=== PATIENT | male | born 1935 | race Hispanic/Latino ===

== ENCOUNTER 2017-02-11 08:11 | Emergency (ER) | payer MEDICARE ==
[2017-02-11 08:22] VITALS: BMI 25.6
[2017-02-11 08:26] VITALS: TEMP 98.5
[2017-02-11 08:57] LABS: ADD MANUAL DIFF? NO
[2017-02-11 09:03] LABS: BASO # 0.02 K/mm3 (0.0-2.0); BASO % 0.3 % (0.0-3.0); EOS # 0.2 (0.0-0.7); EOS % 2.8 % (1.5-5.0); GRAN % 55.7 % (50.0-68.0); HEMATOCRIT 42.4 % (42.0-52.0); LYMPH # 1.8 (1.2-3.4); LYMPH % 30.8 % (22.0-35.0); MEAN CELL VOLUME 92.6 fL (80.0-105.0); MEAN CORPUSCULAR HEMOGLOBIN 32.1 pg (25.0-35.0); MEAN CORPUSCULAR HGB CONC 34.7 g/dl (31.0-37.0); MEAN PLATELET VOLUME 10.2 fl (7.0-11.0); MONO # 0.6 (0.1-0.6); MONO % 10.4 % (1.0-6.0); PLATELET COUNT 224 10^3/uL (120.0-450.0); RED CELL DISTRIBUTION WIDTH 13.6 % (11.5-14.5); WHITE BLOOD COUNT 5.8 10^3/ul (4.5-11.0)
[2017-02-11 09:10] LABS: INR 1.04 (0.93-1.08); PARTIAL THROMBOPLASTIN TIME 30.9 Seconds (23.7-30.8)
[2017-02-11 09:11] LABS: ALB/GLOB RATIO 1.2 (1.1-1.8); ALKALINE PHOSPHATASE 96 U/L (38-133); ALT/SGPT 39 U/L (7-56); AST/SGOT 23 U/L (15-59); BILIRUBIN,TOTAL 0.4 mg/dL (0.2-1.3); BLOOD UREA NITROGEN 19 mg/dL (7-21); CALCIUM 9.6 mg/dL (8.4-10.5); CARBON DIOXIDE 27 mmol/L (21-33); CHLORIDE 103 mmol/L (95-110); GFR AFRICAN-AMERICAN > 60; GLUCOSE,RANDOM 90 mg/dL (70-110); LIPASE 147 U/L (23-300); SODIUM 140 mmol/L (132-148); TOTAL PROTEIN 7.5 g/dL (5.8-8.3)
--- NOTE | 2017-02-11 09:18 | ED PDOC ---
Arrival/HPI - General Chief Complaint: Male Genitourinary Time Seen by Provider: 02/11/17 08:22 Historian: Patient - History of Present Illness Narrative History of Present Illness (Text): 02/11/17 09:11 A 81 year old male, whose past medical history includes anxiety and neuropathy, presents to the emergency department complaining of urinary retention. Patient notes he has difficulty urinating during the night and reports only some urine last night. Patient reports he has pain from both sides of groin to middle abdomen. Patient denies dysuria or any other complaints at this time. PMD: Dr. Coronado Medications: Detrol and Cardura Symptom Onset: Sudden Symptom Course: Unchanged Activities at Onset: Rest Context: Home Associated Symptoms (Text): abdominal pain Past Medical History - Provider Review Nursing Documentation Reviewed: Yes - Past History Past History: No Previous - Infectious Disease Hx of Infectious Diseases: None - Tetanus Immunization Tetanus Immunization: Unknown - Past Medical History Past Medical History: No Previous - Cardiac Hx Cardiac Disorders: No - Pulmonary Hx Respiratory Disorders: Yes (SMOKED 40 YRS AGO ,NOT A HEAVY SMOKER JUST TIRED IT HE STATED) Hx Bronchitis: Yes - Neurological Hx Neurological Disorder: Yes (NEUROPATHY) - HEENT Hx HEENT Disorder: Yes (using glasses) 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) - Renal Hx Renal Disorder: No - Endocrine/Metabolic Hx Endocrine Disorders: No - Hematological/Oncological Hx Blood Disorders: No - Integumentary Hx Dermatological Disorder: No - Musculoskeletal/Rheumatological Hx 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) Hx Falls: Yes (LAST 12/19/11) - Gastrointestinal Hx Gastrointestinal Disorders: Yes Other/Comment: COLONOSCOPY WITH POLYPS REMOVED - Genitourinary/Gynecological Hx Genitourinary Disorders: No - Psychiatric Hx Psychophysiologic Disorder: Yes Hx Anxiety: Yes Hx Depression: Yes Hx Substance Use: No - Past Surgical History Past Surgical History: No Previous - Anesthesia Hx Anesthesia: Yes Hx Anesthesia Reactions: No Hx Malignant Hyperthermia: No - Suicidal Assessment Feels Threatened In Home Enviroment: No Family/Social History - Physician Review Nursing Documentation Reviewed: Yes Family/Social History: No Known Family HX Smoking Status: Never Smoked Hx Alcohol Use: No Hx Substance Use: No Hx Substance Use Treatment: No Allergies/Home Meds Allergies/Adverse Reactions: Allergies aspirin Allergy (Verified 02/11/17 08:42) NAUSEA codeine Allergy (Verified 02/11/17 08:26) DIZZINESS Penicillins Allergy (Verified 02/11/17 08:26) ANAPHYLAXIS Home Medications: Home Meds Medication Instructions Recorded Confirmed Quetiapine Fumarate [Seroquel] 50 mg PO BID 08/15/14 02/11/17 buPROPion XL [Wellbutrin XL] 300 mg PO QAM 08/15/14 02/11/17 diaZEpam [Valium] 5 mg PO TID 08/15/14 02/11/17 Gabapentin [Neurontin] 300 mg PO TID 08/30/16 02/11/17 Review of Systems - Physician Review All systems were reviewed & negative as marked: Yes - Review of Systems Constitutional: Normal Eyes: Normal ENT: Normal Respiratory: Normal Cardiovascular: Normal Gastrointestinal: Abdominal Pain Genitourinary Male: Urinary Output Changes. absent: Dysuria Musculoskeletal: Normal Skin: Normal Neurological: Normal Endocrine: Normal Hemo/Lymphatic: Normal Psychiatric: Normal Physical Exam Vital Signs Reviewed: Yes Vital Signs Temp Pulse Resp BP Pulse Ox 02/11/17 11:47 62 18 116/66 98 02/11/17 10:14 67 18 110/68 97 02/11/17 08:22 98.5 F 75 20 140/50 L 100 Temperature: Afebrile Blood Pressure: Hypotensive Pulse: Regular Respiratory Rate: Normal Appearance: Positive for: Well-Appearing, Non-Toxic, Comfortable Pain Distress: None Mental Status: Positive for: Alert and Oriented X 3 - Systems Exam Head: Present: Atraumatic, Normocephalic Pupils: Present: PERRL Extroacular Muscles: Present: EOMI Conjunctiva: Present: Normal Mouth: Present: Moist Mucous Membranes Neck: Present: Normal Range of Motion Respiratory/Chest: Present: Clear to Auscultation, Good Air Exchange. No: Respiratory Distress, Accessory Muscle Use Cardiovascular: Present: Regular Rate and Rhythm, Normal S1, S2. No: Murmurs Abdomen: Present: Distention (mild bladder). No: Tenderness Back: Present: Normal Inspection Upper Extremity: Present: Normal Inspection. No: Cyanosis, Edema Lower Extremity: Present: Normal Inspection. No: Edema Neurological: Present: GCS=15, CN II-XII Intact, Speech Normal Skin: Present: Warm, Dry, Normal Color. No: Rashes Psychiatric: Present: Alert, Oriented x 3, Normal Insight, Normal Concentration Medical Decision Making ED Course and Treatment: 02/11/17 09:20 Impression: A 81 year old male with urinary retention. Differential Diagnosis include but are not limited to: urinary retention vs. UTI vs, bladder mass Plan: -- CT abdomen w/wo contrast -- Labs -- Reassess and disposition Prior Visits: Notes and results from previous visits were reviewed. Patient last reported to the emergency department on 11/18/16 for evaluation of intermittent upper left sided chest pain. Patient was admitted to tele/obs. Progress Notes: Medrano inserted by nurse. [address] abdomen Creator : Jonh Flowers MD PROCEDURE: CT Abdomen with and without intravenous contrast IMPRESSION: No evidence of bladder mass or ureteral stone. Kidneys are unremarkable. Patient drained a good amount of urine in the ED. Amount should be documented by RN. Yellow urine. No blood. Abdominal exam improved. No distention. No tenderness. Patient no longer having discomfort or pain. Will place leg bag and keep medrano in place. Will have patient follow up with Dr. Santacruz. He already prescribed patient with Detrol and Cardura for his BPH and urinary symptoms. He will continue to take those. - Lab Interpretations Lab Results: 02/11/17 08:40 02/11/17 08:40 Lab Results 02/11/17 10:00: Urine Color Light yellow, Urine Appearance Clear, Urine pH 7.5, Ur Specific [place] 1.010, Urine Protein Negative, Urine Glucose (UA) Negative, Urine Ketones Negative, Urine Blood Moderate H, Urine Nitrate Negative, Urine Bilirubin Negative, Urine Urobilinogen 0.2, Ur Leukocyte Esterase Negative, Urine RBC 0 - 2, Urine WBC Negative, Ur Epithelial Cells 0 - 2, Urine Bacteria Neg 02/11/17 08:40: Sodium 140, Potassium 4.0, Chloride 103, Carbon Dioxide 27, Anion Gap 14, BUN 19, Creatinine 0.9, Est GFR ( Amer) > 60, Est GFR (Non- Af Amer) > 60, Random Glucose 90, Calcium 9.6, Total Bilirubin 0.4, AST 23, ALT 39, Alkaline Phosphatase 96, Total Protein 7.5, Albumin 4.2, Globulin 3.4, Albumin/Globulin Ratio 1.2, Lipase 147 02/11/17 08:40: PT 11.2, INR 1.04, APTT 30.9 H 02/11/17 08:40: WBC 5.8 D, RBC 4.58, Hgb 14.7, Hct 42.4, MCV 92.6, MCH 32.1, MCHC 34.7, RDW 13.6, Plt Count 224, MPV 10.2, Gran % 55.7, Lymph % (Auto) 30.8, Barron % (Auto) 10.4 H, Eos % (Auto) 2.8, Baso % (Auto) 0.3, Gran # 3.20, Lymph # 1.8, Barron # 0.6, Eos # 0.2, Baso # 0.02 I have reviewed the lab results: Yes - RAD Interpretation Radiology Orders: 02/11/17 08:27 ABDOMEN,PELVIS W/WO CONTRAST [CT] Stat - Medication Orders Current Medication Orders: Discontinued Medications Acetaminophen (Tylenol 325mg Tab) 650 mg PO STAT STA Stop: 02/11/17 08:40 Last Admin: 02/11/17 08:53 Dose: 650 mg Iohexol (Omnipaque 350 100 Ml) Confirm Administered Dose 350 mg .ROUTE .STK-MED ONE Stop: 02/11/17 09:20 Ketorolac Tromethamine (Toradol) 15 mg IVP STAT STA Stop: 02/11/17 08:42 Last Admin: 02/11/17 08:53 Dose: 15 mg - Scribe Statement The provider has reviewed the documentation as recorded by the Usmanibbelkis Pyle All medical record entries made by the Usmanibbelkis were at my direction and personally dictated by me. I have reviewed the chart and agree that the record accurately reflects my personal performance of the history, physical exam, medical decision making, and the department course for this patient. I have also personally directed, reviewed, and agree with the discharge instructions and disposition. Disposition/Present on Arrival - Present on Arrival Any Indicators Present on Arrival: No History of DVT/PE: No History of Uncontrolled Diabetes: No Urinary Catheter: No History of Decub. Ulcer: No History Surgical Site Infection Following: None - Disposition Have Diagnosis and Disposition been Completed?: Yes Diagnosis: Urinary retention Disposition: HOME/ ROUTINE Disposition Time: 12:00 Patient Plan: Discharge Condition: IMPROVED Discharge Instructions (ExitCare): Urinary Retention in Men (ED) Additional Instructions: You, thank you for letting us take care of you today. Your provider was Dr. Decker. You were treated for Urinary Retention. The emergency medical care you received today was directed at your acute symptoms. If you were prescribed any medication, please fill it and take as directed. It may take several days for your symptoms to resolve. Return to the Emergency Department if your symptoms worsen, do not improve, or if you have any other problems. Please contact your doctor or call one of the physicians/clinics you have been referred to that are listed on the Patient Visit Information form that is included in your discharge packet. Bring any paperwork you were given at discharge with you along with any medications you are taking to your follow up visit. Our treatment cannot replace ongoing medical care by a primary care provider (PCP) outside of the emergency department. Keep medrano with leg bag in place until Urology follow up. Continue home medications. Thank you for allowing the [facility] team to be part of your care today. If you had an X-Ray or CT scan: A Radiologist will review the ED reading if any change in treatment is needed we will contact you. If you had a blood, urine, or wound culture: It will take several days for the results, if any change in treatment is needed we will contact you. If you had an STI test: It will take 48 hours for the results. Please call after 1 week if you have not heard back. Referrals: Joce Santacruz MD [Staff Provider] - Follow up with primary Jonh Coronado MD [Primary Care Provider] - Follow up with primary Forms: [employer] (Emirati), WORK NOTE
[2017-02-11] MEDS ORDERED: Iohexol 350 MG/100 ML VIAL ONE (09:19)
--- NOTE | 2017-02-11 10:09 | CT ---
PROCEDURE: CT Abdomen with and without intravenous contrast HISTORY: urinary retention r/o bladder mass r/o kidney ston COMPARISON: None. TECHNIQUE: Axial images of the abdomen from lung bases to iliac crest with and without intravenous contrast enhancement. Coronal and sagittal reformats generated. Oral contrast also administered. Intravenous contrast Dose: 100 cc of Omni 350 Radiation dose: Total exam DLP = 1419 mGy-cm. This CT exam was performed using one or more of the following dose reduction techniques: Automated exposure control, adjustment of the mA and/or kV according to patient size, and/or use of iterative reconstruction technique. FINDINGS: LOWER THORAX: Unremarkable. LIVER: Unremarkable. No gross lesion or ductal dilatation. GALLBLADDER AND BILE DUCTS: Unremarkable. PANCREAS: Unremarkable. No gross lesion or ductal dilatation. SPLEEN: Unremarkable. ADRENALS: Unremarkable. No mass. KIDNEYS AND URETERS: Unremarkable. No hydronephrosis. No solid mass. VASCULATURE: Unremarkable. No aortic aneurysm. BOWEL: Unremarkable. No obstruction. No gross mural thickening. APPENDIX: Normal appendix. PERITONEUM: Unremarkable. No free fluid. No free air. LYMPH NODES: Unremarkable. No enlarged lymph nodes. BLADDER: Charles catheter. No evidence of bladder mass REPRODUCTIVE: The prostate measures 5.4 cm in diameter. A Charlse catheter is in place BONES: No acute fracture. OTHER FINDINGS: None. IMPRESSION: No evidence of bladder mass or ureteral stone. Kidneys are unremarkable.
[2017-02-11 10:15] VITALS: RESP 18
[2017-02-11 10:25] LABS: PH,URINE 7.5 (4.7-8.0); URINE BILIRUBIN NEGATIVE (NEGATIVE); URINE BLOOD MODERATE (NEGATIVE); URINE GLUCOSE (UA) NEGATIVE (NEGATIVE); URINE KETONE NEGATIVE (NEGATIVE); URINE LEUKOCYTE ESTERASE NEGATIVE Leu/uL (NEGATIVE); URINE PROTEIN NEGATIVE mg/dL (<30 mg/dL); URINE UROBILINOGEN 0.2 E.U./dL (<1 E.U./dL)
[2017-02-11 10:35] LABS: URINE APPEARANCE CLEAR (CLEAR); URINE COLOR LIGHT YELLOW (YELLOW)
[2017-02-11 10:39] LABS: URINE RBC 0 - 2 /hpf (0-2); URINE WBC NEGATIVE /hpf (0-6)
[2017-02-11 10:40] LABS: URINE BACTERIA NEG (NEG); URINE EPITHELIAL CELLS 0 - 2 /hpf (0-5)
[2017-02-11 11:48] VITALS: BP 116/66; PULSE 62; O2SAT 98
== END 2017-02-11 12:10 | disposition home or self-care (01) ==
LOC: ED 08:11
DX: R33.9 Retention of urine, unspecified (principal); F41.9 Anxiety disorder, unspecified; G62.9 Polyneuropathy, unspecified
CPT/HCPCS: 74178; 80053; 81001; 83690; 85025; 85610; 85730; 87086; 96374; 99284; J1885; Q9967

== ENCOUNTER 2017-02-20 13:00 | Inpatient (IN) | payer MEDICARE ==
[2017-02-20] MEDS ORDERED: Propofol 10 mg/ml Inj (20 ML) ONE (15:59)
[2017-02-20] MEDS ORDERED: Midazolam 2 MG/2 ML VIAL ONE (16:00)
[2017-02-20] MEDS ORDERED: Ciprofloxacin 400mg/200ml D5W 400 MG/200 ML BAG IVPB ONE (16:10)
[2017-02-20] MEDS ORDERED: Liquid Adhesive TOP ONE (16:29)
[2017-02-20] MEDS ORDERED: Morphine 2 mg/ml ISec IM PRN (17:25)
[2017-02-20] MEDS ORDERED: Morphine 2 mg/ml ISec ONE (17:48)
[2017-02-20] MEDS ORDERED: Morphine 2 mg/ml ISec IVP ONE (17:50)
[2017-02-20] MEDS: Oxycodone/Acetaminophen 5/325 mg Tab PO PRN (21:56)
[2017-02-20] MEDS ORDERED: Ciprofloxacin 400mg/200ml D5W 400 MG/200 ML BAG IVPB SCH (22:00)
--- NOTE | 2017-02-21 00:42 | CP.PCM.PN ---
Subjective - Date & Time of Evaluation Date of Evaluation: 02/21/17 Time of Evaluation: 00:41 - Subjective Subjective: Patient was seen at bedside with nurse Mae. Earlier tylenol 650 mg PO was ordered for headache.He is on CBI. When I saw patient in his room, he said he had headache no more. In 2 minutes after I left the room , Mae calls and tells patient wants tylenol again for headache. He had no other complaints. This 81 year old white male was admitted urinary retention, pain from both groin to abdomen. Has PMH of depression , anxiety. Objective - Vital Signs/Intake and Output Vital Signs (last 24 hours): Temp Pulse Resp BP Pulse Ox 98.2 F 67 16 161/78 H 98 02/20/17 18:30 02/20/17 18:30 02/20/17 18:30 02/20/17 18:30 02/20/17 18:30 Intake and Output: 02/20/17 02/21/17 18:59 06:59 Intake Total 200 480 Output Total 1700 Balance 200 -1220 - Medications Medications: Current Medications Lactated Ringer's (Lactated Ringer's) 1,000 mls @ 50 mls/hr IV .Q20H NEL Morphine Sulfate (Morphine) 1 mg IM Q10M PRN PRN Reason: Pain, moderate (4-7) Last Admin: 02/20/17 17:30 Dose: 1 mg Oxycodone/Acetaminophen (Percocet 5/325 Mg Tab) 1 tab PO Q6H PRN PRN Reason: Bladder Spasm Stop: 02/23/17 17:01 Last Admin: 02/20/17 21:56 Dose: 1 tab - Constitutional Appears: Well, No Acute Distress - Head Exam Head Exam: ATRAUMATIC, NORMAL INSPECTION, NORMOCEPHALIC - Eye Exam Eye Exam: Normal appearance - ENT Exam ENT Exam: Normal External Ear Exam - Neck Exam Neck Exam: Normal Inspection - Respiratory Exam Respiratory Exam: NORMAL BREATHING PATTERN - Cardiovascular Exam Cardiovascular Exam: absent: JVD - GI/Abdominal Exam GI & Abdominal Exam: absent: Distended - Rectal Exam Rectal Exam: Deferred - Extremities Exam Extremities Exam: Normal Inspection - Back Exam Back Exam: NORMAL INSPECTION - Neurological Exam Neurological Exam: Alert, Awake, Oriented x3 - Psychiatric Exam Psychiatric exam: Normal Affect, Normal Mood - Skin Skin Exam: Normal Color Assessment and Plan - Assessment and Plan (Free Text) Assessment: A/P:Head ache. Urinary retention. Depression. Anxiety. Continue present management. Tylenol 650 mg PO x 2. was made aware by nurse.
[2017-02-21] MEDS ORDERED: Alum-Mag Hydrox-Simethicone Susp (30 mL) PO STA (05:58)
[2017-02-21] MEDS: Lidocaine 2% Jelly (30 ml) TOP SCH ×2 (08:54→09:25)
[2017-02-21] MEDS: Oxycodone/Acetaminophen 5/325 mg Tab PO PRN (08:57)
[2017-02-21] MEDS: buPROPion 300 mg/24 Hours XL Tab PO SCH (11:33)
[2017-02-21] MEDS ORDERED: Pneumococcal 23-Valent Vaccine IM ONE (14:20)
[2017-02-21] MEDS ORDERED: Magnesium Hydroxide Susp 30 ml UD PO ONE (14:32)
[2017-02-21] MEDS: Lactated Ringer's 1,000 ML IV SCH (16:58)
--- NOTE | 2017-02-21 18:40 | CON ---
DATE: 02/21/2017 HISTORY OF PRESENT ILLNESS: The patient is a 81-year-old male who was admitted to the [facility] yesterday after elective transurethral prostatectomy performed by Dr. Santacruz. Th e patient is known to have a history of rheumatoid arthritis, anxiety, and depression. He had diffic ulty with urinary retention, was evaluated by Dr. Santacruz, plans were made for the TURP which was suc cessfully performed yesterday. Postoperatively, the patient is suffering from pain and excessive ble eding. His bladder is being flushed with a 2-way Charles catheter. I have known the patient from offi ce visits as a primary care physician for several years. MEDICATIONS: Valium 5 mg 3 times a day, Wellbutrin-XL 300 mg in the morning, Seroquel 50 mg p.o. twi ce a day and Neurontin 300 mg 3 times a day. SOCIAL HISTORY: He is a nonsmoker and nonalcoholic drinker. ALLERGIES: KNOWN TO BE ALLERGIC TO ASPIRIN, CODEINE AND PENICILLINS. He is . REVIEW OF SYSTEMS: Otherwise unremarkable. PHYSICAL EXAMINATION: GENERAL: When seen today, he is lying in bed. He is awake, alert, and comfortable. HEENT: Unremarkable. NECK: Supple, with no lymphadenopathy, no goiter. LUNGS: Clear to auscultation and percussion. HEART: Regular, no murmurs are appreciated. ABDOMEN: Soft, nontender with no organomegaly. GENITALIA: Normal for age and sex. Charles catheter is in place. EXTREMITIES: Free of cyanosis, clubbing, edema. There are severe arthritic changes noted in the méndez ds. NEUROLOGIC: He is awake, alert, and oriented with no focal neurological signs. LABORATORY STUDIES: From this admission have been reported. However, on 02/11 his CBC, comprehensive metabolic profile and coagulation studies were normal. VITAL SIGNS: He is afebrile at 98.2 degrees Fahrenheit, blood pressure is 161/78, heart rate is 67. I reordered the patient's medications as he was taking prior to hospitalization. I added tramadol 50 mg to be taken 2 tablets 3 times a day as needed for pain. The patient will be reevaluated in the [facility]. He states he would not want to be discharged until his Charles catheter clears and he is able to ambulate. The patient will be reevaluated in the morning. Jonh Coronado MD cc: [id number] TT: 02/21/2017 18:39:30 Confirmation # [id number] Dictation # [id number] lissy
--- NOTE | 2017-02-22 06:12 | PCM.URO ---
Urology Progress Note - Objective Intake & Output: Intake & Output 02/21/17 02/21/17 02/22/17 06:59 18:59 06:59 Intake Total 480 660 Output Total 90381 1400 Balance -72840 -250 Weight 140 lb Intake: Oral 480 660 Output: Urine 14685 1400 Urethral (Charles) 89334 1400 Other: Voiding Method Indwelling Catheter # Bowel Movements 0 0 Vital Signs: Vital Signs - 24 hr 02/21/17 02/21/17 02/21/17 08:00 14:08 16:00 Temperature 98.2 F 98.2 F 97.9 F Pulse Rate 70 70 60 Respiratory 18 18 18 Rate Blood Pressure 111/66 111/69 122/69 O2 Sat by Pulse 94 L 97 Oximetry
[2017-02-22] MEDS ORDERED: Magnesium Hydroxide Susp 30 ml UD PO ONE (06:38)
[2017-02-22] MEDS: Oxycodone/Acetaminophen 5/325 mg Tab PO PRN (08:58)
[2017-02-22] MEDS: Lidocaine 2% Jelly (30 ml) TOP SCH (09:37)
[2017-02-22] MEDS: buPROPion 300 mg/24 Hours XL Tab PO SCH (11:00)
[2017-02-22] MEDS: Lactated Ringer's 1,000 ML IV SCH (22:06)
[2017-02-23] MEDS: POLYETHYLENE GLYCOL 3350 17 GM/Dose PACKET PO SCH (10:45)
[2017-02-23] MEDS: Lidocaine 2% Jelly (30 ml) TOP SCH (10:48)
[2017-02-23] MEDS: buPROPion 300 mg/24 Hours XL Tab PO SCH (10:49)
--- NOTE | 2017-02-23 13:22 | PCM.URO ---
Urology Progress Note - Objective Intake & Output: Intake & Output 02/22/17 02/23/17 02/23/17 18:59 06:59 18:59 Intake Total 580 660 380 Output Total 1900 100 Balance 580 -1240 280 Weight 141 lb Intake: Oral 580 660 380 Output: Urine 1900 100 Urethral (Charles) 1900 100 Other: Voiding Method Indwelling Catheter # Bowel Movements 0 2 Vital Signs: Vital Signs - 24 hr 02/22/17 02/23/17 16:00 07:30 Temperature 97.9 F 98.7 F Pulse Rate 76 72 Respiratory 20 22 Rate Blood Pressure 100/60 127/73 O2 Sat by Pulse 97 Oximetry
[2017-02-24 07:09] LABS: ADD MANUAL DIFF? NO
[2017-02-24 07:18] LABS: BASO # 0.02 K/mm3 (0.0-2.0); BASO % 0.3 % (0.0-3.0); EOS # 0.3 (0.0-0.7); EOS % 3.7 % (1.5-5.0); GRAN # 4.88 (1.4-6.5); GRAN % 61.4 % (50.0-68.0); HEMATOCRIT 40.7 % (42.0-52.0); LYMPH # 1.9 (1.2-3.4); LYMPH % 23.9 % (22.0-35.0); MEAN CELL VOLUME 92.9 fL (80.0-105.0); MEAN CORPUSCULAR HEMOGLOBIN 31.7 pg (25.0-35.0); MEAN CORPUSCULAR HGB CONC 34.2 g/dl (31.0-37.0); MEAN PLATELET VOLUME 9.5 fl (7.0-11.0); MONO # 0.9 (0.1-0.6); MONO % 10.7 % (1.0-6.0); PLATELET COUNT 220 10^3/uL (120.0-450.0); RED CELL DISTRIBUTION WIDTH 13.6 % (11.5-14.5); WHITE BLOOD COUNT 7.9 10^3/ul (4.5-11.0)
[2017-02-24] MEDS: POLYETHYLENE GLYCOL 3350 17 GM/Dose PACKET PO SCH (10:25)
[2017-02-24] MEDS: buPROPion 300 mg/24 Hours XL Tab PO SCH (10:26)
[2017-02-24] MEDS: Lidocaine 2% Jelly (30 ml) TOP SCH (10:27)
[2017-02-24 17:59] VITALS: BP 120/78; PULSE 81; RESP 16; TEMP 97.4; O2SAT 98
--- NOTE | 2017-02-24 22:05 | PN ---
DATE: 02/24/2017 The patient was seen this Thursday at the lunchtime hour in room 565, bed 2. He is sitting out of bed in the chair, comfortable, awake, alert and appropriate. A Charles catheter had been removed earlier this morning on the order of Dr. Santacruz. It is now about an hour and a half later, he has not had s ensation to void. PLAN: Will be to notify Dr. Santacruz if he has not voided in 6 hours. I spoke with the patient at [facility] explaining the plan and asked him about the proposed offer to go to the transitional care for ad ditional physical therapy and conditioning. The patient is open to the idea, willing to go to the TC U depending on how his progress is today. If he goes to TCU I would be more than happy to accept the patient for that stay. We will need to talk with urology later. Arsalan Coronado MD cc: [id number] TT: 02/24/2017 22:04:17 Confirmation # [id number] Dictation # [id number] katerin
--- NOTE | 2017-03-03 08:52 | HP ---
REASON FOR ADMISSION: Treatment for urinary retention. The patient is a very pleasant gentleman who has significant voiding dysfunction, decreased flow of s tream, urgency, and after discussing options, he is here now for transurethral resection of the prost ate. I discussed risks, benefits, alternative treatment options with the patient. We are going to plan to proceed. The patient is also a patient of Dr. Coronado. REVIEW OF SYSTEMS: As above, otherwise noncontributory. He does have a significant anxiety conditio n and psych history, but currently stable. MEDICATIONS: See the chart. SOCIAL HISTORY: He comes to the office. His daughter is also involved in his care. He has a . Otherwise, unremarkable history. ALLERGIES: . PHYSICAL EXAMINATION: GENERAL: Well-nourished male, in no apparent distress. VITAL SIGNS: Within normal limits, included on the chart. ABDOMEN: Overall soft, nontender, no flank mass appreciated. LUNGS: Clear. HEART: . ABDOMEN: Overall soft, nontender. GENITOURINARY: Normal phallus without discharge. RECTAL: A 30-gram prostate, soft and smooth. LABORATORIES: See chart. DIAGNOSES: Voiding dysfunction, urinary retention, decreased force of stream, urgency, incontinence and recurrent episodes of urinary retention. We discussed options with the patient, risks, benefits and treatment alternatives at length. He has had a couple episodes of retention. When I met the patient most recently, he was discharged h ome with a Charles catheter in place that he was not able to take care of well. I have pictures actual ly when I was very concerned about infection around the catheter site with skin infection. This has subsequently resolved. The patient was not able to void. We did discuss other options. He is not really a candidate for CIC. After discussing all those options with the patient, risks, benefits and treatment alternatives, he i s here now today. We are admitting him to the hospital. PLAN: Cystoscopy and TURP, and then further plans to follow. Risks and benefits were discussed at [place], bleeding, infection, perforations, etc., no improvement. Although these are less likely. I expect the patient to do very well. My recommendation is to proce ed with a TURP. Glen Santacruz MD cc: [phone] TT: 03/03/2017 08:51:30 en
--- NOTE | 2017-03-03 10:28 | OP ---
PROCEDURE DATE: 02/20/2017 PREOPERATIVE DIAGNOSES: Urinary retention, gross hematuria. POSTOPERATIVE DIAGNOSES: Urinary retention, gross hematuria. PROCEDURE: Transurethral resection of the prostate. SURGEON: Dr. Glen Santacruz. SPECIMEN SENT: Prostate chips. COMPLICATIONS: None. BLOOD LOSS: Less than 25 mL. INDICATIONS: See the history and physical for further details. The patient is a very pleasant gentl eman who has significant voiding dysfunction and urinary retention. We discussed options with the patient. After discussing various options, risks, benefits and alternatives, specifically the risk of incontin ence, risk of surgery not working, my recommendation is to proceed with a TURP. He is here for the above procedure. PROCEDURE: After obtaining informed consent, the patient placed on the table. Routine monitors plac ed, timeouts were called to confirm patient, positioning. Under direct vision, we used the continuous flow resectoscope. We introduced the scope without difficulty. The patient has trilobar hypertrophy. We identified our landmarks, ureteral orifices, etc. and the v eru. We now began our resection between the 5 and 7 o'clock positions. We then turned our attention to 7, 11 and between 5 and [address] meticulously, carefully, achieving hemostasis ____ along the way to keep the patient under control. As needed, we cauterized. There really was not a lot of bleeding. We continued quickly and meticulously, kept checking our landmarks. Once we were opened between 5 and 7 and then around the clock between 11 and 1, we turned our attenti on to the roof. We opened up anteriorly along the roof, resecting carefully and slowly. Once we did this, we inspected. It is nicely opened. Pictures are taken and saved. I now evacuated all the chips using the evacuator. At this point, we inspected further. There was no bleeding at all. We inserted a Charles catheter via the urethra. We used a 22-[place] 3-way with mild traction. Overall, the patient tolerated procedure well without complication. Glen Santacruz MD cc: [phone] TT: 03/03/2017 08:57:09 tn
--- NOTE | 2017-03-09 11:40 | OP ---
PROCEDURE DATE: 02/20/2017 PREOPERATIVE DIAGNOSES: Urinary retention, voiding dysfunction, decreased force of stream. POSTOPERATIVE DIAGNOSES: Urinary retention, voiding dysfunction, decreased force of stream. PROCEDURE: Transurethral resection of the prostate. SURGEON: Glen Santacruz MD. SPECIMEN SENT DOWN: Prostate chips. COMPLICATIONS: There were no complications. INDICATIONS: See the history and physical for further details. A very pleasant gentleman who has si gnificant voiding dysfunction, decreased force of stream, incontinence, but it is mostly an overflow incontinence. We discussed options including further workup, diagnostic studies, etc. The patient is also a fairly anxious gentleman. He is 81 years old. We discussed options with the patient, risks, benefits and treatment alternative s. He is here now for a TURP. We discussed [employer] lasers. We discussed resection, getting specimen. We also discussed risks, some of them not relevant for the patient in terms of ejaculatory dysfunctio n, etc., but mostly his biggest concern was trying to be able to urinate with a better flow. I shoul d also mention to see history and physical for further details. We most recently had met the patient again when he had presented with a catheter in place, and then there was difficulty taking care of t he catheter. The skin was getting infected; I have some pictures regarding this. After discussing o ptions, catheters, self-catheterization, all of these were not going to work out well for the patient . So he is here today for the above listed procedure. FINDINGS TODAY: Normal anterior urethra, no strictures. From the veru on in, it is visually occlusi ve of about 3 cm in length. At the termination of the procedure, the patient is opened, very nicely open actually. Multiple pictures were taken and saved. Landmarks, the verumontanum, the ureteral orifices are all identified. At the termination of the procedure, there is no bleeding. The patient tolerated procedure well. DATE OF PROCEDURE: After obtaining informed consent, the patient placed on table, routine monitors p laced; timeouts were called to confirm the patient, the positioning, etc.; antibiotic prophylaxis, et c. We introduced the continuous flow resectoscope. We used a visual obturator. We identified our landmarks. There are no strictures. We now turned our attention. We began at the bladder neck between 5 and 7. We opened this up nicely and achieved hemostasis. We now turned our attention between and and and , and again achiev ed hemostasis, and worked our way towards the veru. We now turned our attention towards the anterior, between and and opened this nicely. At each s ection along the way, we made sure we had good hemostasis and we were wide open. We now reinspected. Everything is wide open. We evacuated the chips. The patient tolerated the procedure well without complication. Charles catheter is placed via the urethra with about 50 mL in the balloon with a mild amount of tracti on. We connected to CBI. The patient tolerated the procedure well without complication. Glen Santacruz MD cc: [id number] TT: 03/09/2017 10:03:04 tn 03/09/2017 10:39:34
--- NOTE | 2017-05-05 13:19 | DS ---
See the dictated history and physical, dictated operative report. A very pleasant gentleman, who presents with urinary retention and voiding dysfunction. . See the dictated history and physical, dictated operative report.. At the time of discharge, the patient is discharged home in stable condition with routine monitoring and followup. Further plan to follow. the patient in great detail, our recommendations and plans and we will discuss further. FINAL DIAGNOSES: Urinary retention, voiding dysfunction, hematuria, and catheter difficulty. He is discharged home in stable condition. Glen Santacruz MD
--- NOTE | 2017-05-08 15:00 | PN ---
DATE: UROLOGY POSTOP NOTE Please see history and physical and operative report for further details. The patient is currently resting comfortably. Vital signs are within normal limits. The abdomen is soft. Charles catheter is in place. The diagnosis is urinary retention and voiding dysfunction. The plans are routine postop care. We of the Charles catheter. Glen Santacruz MD
== END 2017-02-24 18:31 | DRG 714 ==
LOC: SDS 13:00 → 5RNO 18:47 → SDS 18:48 → UNDOFXSDCACCOM 02-21 14:56 → UNDOFXSDCRRACCOM 02-21 14:56 → UNDOFXSDCSVC 02-21 14:56 → 5RNO 02-21 14:56 → SDS 02-21 14:56
PROVIDERS: ADMIT Urology; ATTEND Urology
PROC: 0VT08ZZ Resection of Prostate, Via Natural or Artificial Opening Endoscopic (ICD-10-PCS; principal; 2017-02-20 14:30)
DX: N40.1 Benign prostatic hyperplasia with lower urinary tract symptoms (principal); M06.9 Rheumatoid arthritis, unspecified; R31.0 Gross hematuria; F32.9 Major depressive disorder, single episode, unspecified; R33.8 Other retention of urine; R51 Headache; F41.9 Anxiety disorder, unspecified; Z88.6 Allergy status to analgesic agent

== ENCOUNTER 2017-02-24 18:43 | Inpatient (IN) | payer OTHER, MEDICARE ==
[2017-02-24 18:47] VITALS: BMI 26.2
[2017-02-24] MEDS: Lidocaine 2% Jelly (30 ml) TOP PRN (21:53)
[2017-02-25] MEDS: POLYETHYLENE GLYCOL 3350 17 GM/Dose PACKET PO SCH (09:44)
[2017-02-25] MEDS: buPROPion 300 mg/24 Hours XL Tab PO SCH (09:46)
[2017-02-25] MEDS: Lidocaine 2% Jelly (30 ml) TOP PRN (09:54)
--- NOTE | 2017-02-26 09:45 | PN ---
DATE: 02/25/2017 The patient is a 81-year-old male who was admitted to [facility] on 02/21 under the care o f Dr. Glen Santacruz, the urologist, after undergoing a TURP secondary to urinary retention. After the prostatectomy, the patient had 2-way Charles inserted. This was replaced by a regular Charles cathet er with a leg bag and did well. He is also known to have a history of rheumatoid arthritis, anxiety, and depression. However, after 1 day with the Charles catheter and leg bag, blood appeared in his uri ne once again, and at that point, the determination was made for the patient to be transferred to the transitional care unit for continued followup, as well as physical therapy for ambulation. MEDICATIONS: His current medication includes Valium 5 mg 3 times a day, Wellbutrin XL 300 mg q. a.m. , Seroquel 50 mg b.i.d., and Neurontin 300 mg 3 times a day. When seen, the patient was feeling well. He had no complaints. He was awake, alert, and oriented. PHYSICAL EXAM: Unremarkable. He did have a Charles catheter in place. Apparently, it was discontinued. However, the patient develo ped lower abdominal pain, showed a residual of 433 mL of urine; therefore, it was replaced. The urin e in the Charles today is slightly blood-tinged. VITAL SIGNS: His blood pressure is 122/62, heart rate of 75, and he is afebrile. So at the patient's request, we will replace the Charles bag with a leg bag. This would allow him easi er access to physical therapy and ambulation. We will continue to follow the patient closely, and di scuss the case with Dr. Santacruz as needed. Jonh Coronado MD cc: [id number] TT: 02/26/2017 09:45:21 Confirmation # [id number] Dictation # [id number] lissy
[2017-02-26] MEDS: POLYETHYLENE GLYCOL 3350 17 GM/Dose PACKET PO SCH (10:39)
[2017-02-26] MEDS: buPROPion 300 mg/24 Hours XL Tab PO SCH (10:41)
--- NOTE | 2017-02-26 12:25 | CON ---
DATE: 02/26/2017 The patient is a 81-year-old white male currently being treated on the transitional care unit following having undergone a transurethral resection of the prostate. The patient has been under psychiatric care for a number of years for bipolar disorder. I follow him regularly in my office. The patient _ ____ family. The patient has been on multiple psychotropic medications. PAST MEDICAL HISTORY: Includes a history of essential tremor. He has a history of episodes of severe generalized anxiety. The patient has been treated with Wellbutrin, Seroquel, and diazepam to stabilize his mood with beneficial effects and without adverse effects. PERSONAL HISTORY: The patient is retired. He lives with his . He has a daughter. He has grandchildren. 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 The patient has no history of alcohol, substance abuse or suicide attempts. CURRENT MEDICATIONS: Include diazepam 5 mg t.i.d., Seroquel 50 mg b.i.d., Wellbutrin-XL 300 mg p.o. q.a.m. CURRENT LABORATORY DATA: As follows: Hgb 13.0 WBC 5,800. Metabolic profile W.N.L. CURRENT MENTAL STATUS: The patient is awake, alert, somewhat tremulous, anxious , slept poorly last night. He is oriented x 3. Denied suicidal ideation, psychotic symptomatology. The patient complained about his medications, about getting them in proper time. IMPRESSION: Bipolar Disorder, in remission. The patient is status post transurethral resection of prostate, essential tremor. He has a history of urinary dysfunction, gait dysfunction. PLAN: We will review psychotropic medicine and order appropriately, and we will monitor mental status. Sp Avila MD cc: [id number] TT: 02/26/2017 12:25:16 Confirmation # [id number] Dictation # [id number] en MTDD
[2017-02-27 08:03] LABS: ADD MANUAL DIFF? NO
[2017-02-27 08:26] LABS: BLOOD UREA NITROGEN 17 mg/dL (7-21); CALCIUM 9.4 mg/dL (8.4-10.5); CARBON DIOXIDE 26 mmol/L (21-33); CHLORIDE 104 mmol/L (95-110); GFR AFRICAN-AMERICAN > 60; GLUCOSE,RANDOM 105 mg/dL (70-110); POTASSIUM 4.3 mmol/L (3.6-5.0); SODIUM 139 mmol/L (132-148)
[2017-02-27 08:40] LABS: BASO # 0.02 K/mm3 (0.0-2.0); BASO % 0.3 % (0.0-3.0); EOS # 0.3 (0.0-0.7); EOS % 4.3 % (1.5-5.0); GRAN # 3.39 (1.4-6.5); GRAN % 58.5 % (50.0-68.0); HEMATOCRIT 40.2 % (42.0-52.0); LYMPH # 1.6 (1.2-3.4); LYMPH % 26.9 % (22.0-35.0); MEAN CELL VOLUME 93.1 fL (80.0-105.0); MEAN CORPUSCULAR HEMOGLOBIN 31.5 pg (25.0-35.0); MEAN CORPUSCULAR HGB CONC 33.8 g/dl (31.0-37.0); MEAN PLATELET VOLUME 9.4 fl (7.0-11.0); MONO # 0.6 (0.1-0.6); PLATELET COUNT 312 10^3/uL (120.0-450.0); RED CELL DISTRIBUTION WIDTH 13.5 % (11.5-14.5); WHITE BLOOD COUNT 5.8 10^3/ul (4.5-11.0)
[2017-02-27] MEDS: buPROPion 300 mg/24 Hours XL Tab PO SCH (11:06)
[2017-02-27] MEDS: POLYETHYLENE GLYCOL 3350 17 GM/Dose PACKET PO SCH (14:56)
--- NOTE | 2017-02-27 19:29 | PN ---
DATE: 02/27/2017 The patient is a 81-year-old male currently being treated on the transitional care unit recuperating from a transurethral prostatectomy. The patient has history of bipolar disorder. He is on multiple psychotropic medicines. He has some difficulty falling asleep at night. He is somewhat edgy, anxiou s, nervous, but oriented x 3. Denies suicidal ideation or psychotic symptoms except for some inner a gitation. I spoke with the patient, spoke with patient's . I reviewed the chart. CURRENT MEDICATIONS: Include Seroquel 50 mg b.i.d., Aricept 5 mg at bedtime, MiraLax, Neurontin 300 mg b.i.d. and at bedtime, Seroquel 50 mg b.i.d., Ultram 100 mg t.i.d. p.r.n., diazepam 5 mg b.i.d. an d at bedtime and Wellbutrin-XL 300 mg p.o. q.a.m. daily. LABORATORY DATA: The patient has no new laboratory data to report except for recent normal metabolic profile and essentially normal CBC. VITAL SIGNS: His blood pressure is 132/87, pulse 77, afebrile, respirations 20 per minute, afebrile. I spoke at length with patient and his , counseling rendered. IMPRESSION: Bipolar disorder, status post transurethral prostatectomy. PLAN: We will add a dose of Seroquel 50 mg at bedtime in addition to 50 mg b.i.d. Continue diazepam 5 mg b.i.d. and at bedtime, Wellbutrin-XL 300 mg q.a.m. and Aricept 5 mg p.o. q.a.m. for mild cogniti ve impairment and also will continue to monitor mental status. Sp Avila MD cc: [id number] TT: 02/27/2017 19:29:10 Confirmation # [id number] Dictation # [id number] brandon
[2017-02-28] MEDS: POLYETHYLENE GLYCOL 3350 17 GM/Dose PACKET PO SCH (10:07)
[2017-02-28] MEDS: buPROPion 300 mg/24 Hours XL Tab PO SCH (10:09)
[2017-02-28] MEDS: Lidocaine 2% Jelly (30 ml) TOP PRN (11:48)
--- NOTE | 2017-02-28 16:16 | PN ---
DATE: 02/28/2017 SUBJECTIVE: The patient is a 81-year-old male who was admitted to [facility] transitional care unit 4 days ago status post TURP by Dr. Glen Santacruz. The patient is here for ambulatory therapy as well as followup postop. The patient had had rather prolonged hematuria, blood in his Charles catheter postoperatively. Also, 1 episode of painful urinary retention requiring the Charles catheter to be replaced. PHYSICAL EXAMINATION: GENERAL: When seen today he is in his room. He is standing. He is feeling well, no complaints. He is awake, alert, and oriented. LUNGS: Clear. HEART: Regular. ABDOMEN: Soft and nontender. EXTREMITIES: The hands are dry. There is a large blistery rather patch of skin on the palms of both hands. The patient claims he had seen a tightening machine operator for this in the past who had prescribed clobetasol proprionate 0.05% ointment. I will therefore order this for him at this time. The patient is otherwise doing well. His vital signs are stable and we will continue to follow the patient closely. Jonh Coronado MD cc: [phone] TT: 02/28/2017 16:15:31 Confirmation # [id number] Dictation # [id number] katerin BAIRD
[2017-02-28] MEDS: Clobetasol 0.05% Cream(30 gm) TOP SCH (17:52)
[2017-02-28] MEDS ORDERED: Simethicone 80 mg Chewtab PO STA (20:41)
--- NOTE | 2017-02-28 20:48 | CP.PCM.PN ---
Subjective - Date & Time of Evaluation Date of Evaluation: 02/28/17 Time of Evaluation: 20:42 - Subjective Subjective: Patient was seen at bedside. He complains of gas in stomach. Denies chest pain, sob , sweating, palpitation, nausea, headache, dizziness. Medial record was reviewed. This 81 year old white male was admitted after he had TURP done. 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 Objective - Vital Signs/Intake and Output Vital Signs (last 24 hours): Temp Pulse Resp BP Pulse Ox 97.5 F L 73 20 127/77 93 L 02/28/17 10:00 02/28/17 10:00 02/28/17 10:00 02/28/17 10:00 02/28/17 06:00 Intake and Output: 02/28/17 03/01/17 18:59 06:59 Output Total 550 Balance -550 - Medications Medications: Current Medications Acetaminophen (Tylenol 325mg Tab) 650 mg PO Q6H PRN; Protocol PRN Reason: Pain, moderate (4-7) Last Admin: 02/28/17 13:16 Dose: 650 mg Bupropion HCl (Wellbutrin Xl) 300 mg PO DAILY NEL PRN Reason: Protocol Last Admin: 02/28/17 10:09 Dose: 300 mg Clobetasol Propionate (Temovate 0.05%) 0 gm TOP BID [facility] Last Admin: 02/28/17 17:52 Dose: Not Given Diazepam (Valium) 5 mg PO 0800,1400,2200 NEL PRN Reason: Protocol Last Admin: 02/28/17 14:09 Dose: 5 mg Docusate Sodium (Colace) 100 mg PO TID NEL PRN Reason: Protocol Last Admin: 02/28/17 17:48 Dose: 100 mg Donepezil HCl (Aricept) 5 mg PO HS NEL Last Admin: 02/27/17 21:36 Dose: 5 mg Gabapentin (Neurontin) 300 mg PO HS [facility] Last Admin: 02/27/17 21:36 Dose: 300 mg Gabapentin (Neurontin) 300 mg PO 0800,1400 [facility] Last Admin: 02/28/17 14:09 Dose: 300 mg Lidocaine HCl (Xylocaine 2%) 1 ea TOP Q8H PRN; Protocol PRN Reason: Pain, Mild (1-3) Last Admin: 02/28/17 11:48 Dose: 1 applic Polyethylene Glycol (Miralax) 17 gm PO DAILY NEL PRN Reason: Protocol Last Admin: 02/28/17 10:07 Dose: 17 gm Quetiapine Fumarate (Seroquel) 50 mg PO BID NEL PRN Reason: Protocol Last Admin: 02/28/17 17:48 Dose: 50 mg Quetiapine Fumarate (Seroquel) 50 mg PO 2200 NEL Last Admin: 02/27/17 21:37 Dose: 50 mg Simethicone (Mylicon Chew Tab) 80 mg PO STAT STA Stop: 02/28/17 20:42 Tamsulosin HCl (Flomax) 0.4 mg PO 1830 [facility] PRN Reason: Protocol Last Admin: 02/28/17 17:48 Dose: 0.4 mg Tramadol HCl (Ultram) 100 mg PO TID PRN; Protocol PRN Reason: Pain, moderate (4-7) Last Admin: 02/25/17 00:08 Dose: 100 mg - Labs Labs: 02/27/17 07:30 02/27/17 07:30 - Constitutional Appears: Well, No Acute Distress - Head Exam Head Exam: ATRAUMATIC, NORMAL INSPECTION, NORMOCEPHALIC - Eye Exam Eye Exam: Normal appearance - ENT Exam ENT Exam: Normal External Ear Exam - Neck Exam Neck Exam: Normal Inspection - Respiratory Exam Respiratory Exam: NORMAL BREATHING PATTERN - Cardiovascular Exam Cardiovascular Exam: absent: JVD - GI/Abdominal Exam GI & Abdominal Exam: absent: Distended - Rectal Exam Rectal Exam: Deferred - Extremities Exam Extremities Exam: Normal Inspection - Back Exam Back Exam: NORMAL INSPECTION - Neurological Exam Neurological Exam: Alert, Oriented x3 - Psychiatric Exam Psychiatric exam: Normal Affect, Normal Mood - Skin Skin Exam: Normal Color Assessment and Plan - Assessment and Plan (Free Text) Assessment: Flatulence Dyspepsia. S/P TURP. Anxiety. Depression. Rheumatoid arthritis. BPH. Ex smoker. Plan: Simethicone 80 mg PO x 1. Continue present management.
--- NOTE | 2017-03-01 08:18 | PCM.URO ---
Urology Progress Note - Objective Intake & Output: Intake & Output 02/28/17 03/01/17 03/01/17 18:59 06:59 18:59 Output Total 550 1250 Balance -550 -1250 Output: Urine 550 1250 Urethral (Charles) 550 1250 Other: Voiding Method Indwelling Catheter Indwelling Catheter # Bowel Movements 0 2 Vital Signs: Vital Signs - 24 hr 02/28/17 03/01/17 10:00 05:52 Temperature 97.5 F L 97.6 F Pulse Rate 73 76 Respiratory 20 16 Rate Blood Pressure 127/77 108/62 O2 Sat by Pulse 94 L Oximetry
--- NOTE | 2017-03-01 10:02 | RAD ---
HISTORY: evaqluate gas vs obstruction COMPARISON: No prior. FINDINGS: BOWEL: Normal. No obstruction. No free air. There is a small to moderate amount of stool in the descending colon BONES: Normal. OTHER FINDINGS: None. IMPRESSION: No active disease.
[2017-03-01] MEDS: POLYETHYLENE GLYCOL 3350 17 GM/Dose PACKET PO SCH (10:33)
[2017-03-01] MEDS: Clobetasol 0.05% Cream(30 gm) TOP SCH ×2 (10:34→17:29)
--- NOTE | 2017-03-01 10:34 | US ---
PROCEDURE: Urinary bladder ultrasound HISTORY: pt has medrano/to confirm no retention/don't clamp COMPARISON: None. TECHNIQUE: Standard protocol for this study/examination. FINDINGS: Medrano catheter identified in the urinary bladder. The bladder is completely decompressed. IMPRESSION: Satisfactory position of Medrano catheter with no identifiable urine in the urinary bladder.
[2017-03-01] MEDS: buPROPion 300 mg/24 Hours XL Tab PO SCH (10:35)
--- NOTE | 2017-03-02 07:51 | PCM.URO ---
Urology Progress Note - Objective Intake & Output: Intake & Output 03/01/17 03/02/17 03/02/17 18:59 06:59 18:59 Intake Total 100 Output Total 300 500 Balance -300 -400 Intake: Oral 100 Output: Urine 300 500 Urethral (Charles) 100 Urine, Voided 200 350 Other: Voiding Method Indwelling Catheter Indwelling Catheter # Voids Urethral (Charles) 1 Urine, Voided 2 # Bowel Movements 2 Vital Signs: Vital Signs - 24 hr 03/02/17 05:51 Temperature 97.8 F Pulse Rate 68 Respiratory 16 Rate Blood Pressure 132/78 O2 Sat by Pulse 96 Oximetry
[2017-03-02 09:38] LABS: ADD MANUAL DIFF? NO
[2017-03-02 09:42] LABS: BASO # 0.01 K/mm3 (0.0-2.0); BASO % 0.1 % (0.0-3.0); EOS # 0.2 (0.0-0.7); EOS % 2.3 % (1.5-5.0); GRAN # 4.69 (1.4-6.5); GRAN % 68.6 % (50.0-68.0); HEMATOCRIT 42.1 % (42.0-52.0); LYMPH # 1.4 (1.2-3.4); LYMPH % 19.9 % (22.0-35.0); MEAN CELL VOLUME 92.3 fL (80.0-105.0); MEAN CORPUSCULAR HEMOGLOBIN 31.6 pg (25.0-35.0); MEAN CORPUSCULAR HGB CONC 34.2 g/dl (31.0-37.0); MEAN PLATELET VOLUME 9.4 fl (7.0-11.0); MONO # 0.6 (0.1-0.6); MONO % 9.1 % (1.0-6.0); PLATELET COUNT 367 10^3/uL (120.0-450.0); RED CELL DISTRIBUTION WIDTH 13.4 % (11.5-14.5); WHITE BLOOD COUNT 6.8 10^3/ul (4.5-11.0)
[2017-03-02] MEDS: POLYETHYLENE GLYCOL 3350 17 GM/Dose PACKET PO SCH (09:47)
[2017-03-02] MEDS: Clobetasol 0.05% Cream(30 gm) TOP SCH ×2 (09:48→18:14)
[2017-03-02] MEDS: buPROPion 300 mg/24 Hours XL Tab PO SCH (09:49)
[2017-03-02 09:51] LABS: BLOOD UREA NITROGEN 26 mg/dL (7-21); CARBON DIOXIDE 23 mmol/L (21-33); CHLORIDE 102 mmol/L (98-107); GFR AFRICAN-AMERICAN > 60; GLUCOSE,RANDOM 135 mg/dL (70-110); POTASSIUM 4.2 mmol/L (3.6-5.0); SODIUM 137 mmol/L (132-148)
[2017-03-02] MEDS: Hemorrohoidal Ointment (2 oz) TOP SCH ×4 (10:30→21:23)
--- NOTE | 2017-03-02 13:28 | PN ---
DATE: 03/02/2017 The patient is a 81-year-old male who is status post elective TURP by Dr. Glen Santacruz. After a f ew days in the med/surgical floor of the [facility], the patient was transferre d to the transitional care unit for physical therapy and to further follow his Charles catheter which h ad been persistently bloody. When seen, the patient is awake, alert, and oriented. He is in good spirits. He had the Charles lakshmi ter discontinued in the past which was followed by painful urinary retention; therefore, the Charles ca theter had been replaced. Another attempt at discontinuation of Charles catheter is being considered. This morning, the patient developed bright red blood per rectum. His urologist, Dr. Santacruz was not ified and, on his suggestion, consultation with gastroenterology/Dr. Last is requested. It is be lieved the bleeding is from hemorrhoids which the patient had a treatment of and was being treated wi Anusol-; however, this will be further evaluated by gastroenterology. Jonh Coronado MD cc: [phone] TT: 03/02/2017 13:27:08 Confirmation # [id number] Dictation # [id number] mn
--- NOTE | 2017-03-02 21:52 | CON ---
DATE: 03/02/2017 This patient was seen and evaluated earlier. This is 81-year-old patient was initially admitted following a TURP to the medical surgery floor. The patient has a history of . The patient now in the transitional care unit for deconditioning and noticed to have bright red blood per rectum since yesterday. The patient also complains of slight incontinence of stool and some bleeding whenever he tries to pass urine. No complaints of any pain in the rectal area. No complaints of any black stool. No abdominal pain. PAST MEDICAL HISTORY: Significant for rheumatoid arthritis, anxiety and depression. SOCIAL HISTORY: Denies smoking or alcohol. ALLERGIES: ALLERGIC TO ASPIRIN, CODEINE AND PENICILLIN. REVIEW OF SYSTEMS: Positive as above. Other systems reviewed. PHYSICAL EXAMINATION: GENERAL: The patient is lying on the bed, not in acute distress. VITAL SIGNS: Temperature is 97.8, blood pressure 132/78, respiration is 16 and O2 saturation 96. HEENT: Atraumatic. Anicteric. NECK: Supple. HEART: S1, S2 heard. LUNGS: Bilateral air entry present. ABDOMEN: Soft. There is no tenderness. EXTREMITIES: No edema. No cyanosis or clubbing. Moves all the extremities. RECTAL: Revealed no mass and some small amount of blood present. LABORATORY DATA: Hemoglobin 14.4, hematocrit 42.1, WBC 6.8 and platelets 367. BUN 36 and creatinine of 1.0. IMPRESSION: This 81-year-old patient who is status post transurethral resection of the prostate now has episodes of bright red blood per rectum. On rectal examination , not in any mass lesion, though a small amount of bright red blood present in the finger. The likely cause for this bleeding is probably local etiology. His hemoglobin has been stable. The differential diagnosis includes hemorrhoids. An anal fissure is also a possibility. Less likely is diverticular. The likely other cause to be considered is proctitis and also Clostridium difficile to be considered. Would recommend 1. Stool for C. diff. 2. Will continue the hemorrhoid cream. 3. Sitz baths. Will continue to closely follow up his care and suggest further management based on the clinical course. Shelly Last MD cc: [phone] TT: 03/02/2017 21:51:25 Confirmation # [id number] Dictation # [id number] sn BAIRD
[2017-03-03] MEDS: Hemorrohoidal Ointment (2 oz) TOP SCH ×2 (05:03→10:47)
[2017-03-03 07:42] LABS: HEMATOCRIT 39.6 % (42.0-52.0); MEAN CELL VOLUME 92.3 fL (80.0-105.0); MEAN CORPUSCULAR HEMOGLOBIN 32.2 pg (25.0-35.0); MEAN CORPUSCULAR HGB CONC 34.8 g/dl (31.0-37.0); MEAN PLATELET VOLUME 9.6 fl (7.0-11.0); RED CELL DISTRIBUTION WIDTH 13.4 % (11.5-14.5); WHITE BLOOD COUNT 5.7 10^3/ul (4.5-11.0)
[2017-03-03 07:43] LABS: ARTERIAL BLOOD GAS O2 CAPACITY 19.3 mL/dl (16-24); ARTERIAL BLOOD GAS O2 CONTENT 18.9 ML/dl (15-23); ARTERIAL BLOOD GAS PH 7.45 (7.35-7.45); ARTERIAL BLOOD HGB O2 SAT 95.2 % (95.0-98.0); CARBOXYHEMOGLOBIN 1.9 % (0.5-1.5); METHEMOGLOBIN 0.9 % (0.0-3.0)
--- NOTE | 2017-03-03 07:44 | CP.PCM.PN ---
Subjective - Date & Time of Evaluation Date of Evaluation: 03/03/17 Time of Evaluation: 07:38 - Subjective Subjective: called by nurse to see pt c/o cp .pt is admitted for urinary retention.pt is on multiple pain meds ,no sob . Objective - Vital Signs/Intake and Output Vital Signs (last 24 hours): Temp Pulse Resp BP Pulse Ox 97.5 F L 78 18 131/72 95 03/03/17 05:37 03/03/17 05:37 03/03/17 05:37 03/03/17 05:37 03/03/17 05:37 Intake and Output: 03/03/17 03/03/17 06:59 18:59 Output Total 1000 Balance -1000 - Medications Medications: Current Medications Acetaminophen (Tylenol 325mg Tab) 650 mg PO Q6H PRN; Protocol PRN Reason: Pain, moderate (4-7) Last Admin: 03/03/17 05:03 Dose: 650 mg Bupropion HCl (Wellbutrin Xl) 300 mg PO DAILY [facility] PRN Reason: Protocol Last Admin: 03/02/17 09:49 Dose: 300 mg Clobetasol Propionate (Temovate 0.05%) 0 gm TOP BID [facility] Last Admin: 03/02/17 18:14 Dose: 1 applic Diazepam (Valium) 5 mg PO 0800,1400,2200 [facility] PRN Reason: Protocol Last Admin: 03/02/17 21:23 Dose: 5 mg Docusate Sodium (Colace) 100 mg PO TID NEL PRN Reason: Protocol Last Admin: 03/02/17 18:13 Dose: 100 mg Donepezil HCl (Aricept) 5 mg PO HS [facility] Last Admin: 03/02/17 21:23 Dose: 5 mg Gabapentin (Neurontin) 300 mg PO HS [facility] Last Admin: 03/02/17 21:23 Dose: 300 mg Gabapentin (Neurontin) 300 mg PO 0800,1400 [facility] Last Admin: 03/02/17 12:59 Dose: 300 mg Lidocaine HCl (Xylocaine 2%) 1 ea TOP Q8H PRN; Protocol PRN Reason: Pain, Mild (1-3) Last Admin: 02/28/17 11:48 Dose: 1 applic Multi-Ingredient Ointment (Prep-Hem) 0 ea TOP 5XD [facility] Last Admin: 03/03/17 05:03 Dose: 1 applic Polyethylene Glycol (Miralax) 17 gm PO DAILY [facility] Last Admin: 03/02/17 09:47 Dose: 17 gm Quetiapine Fumarate (Seroquel) 50 mg PO BID NEL PRN Reason: Protocol Last Admin: 03/02/17 18:14 Dose: 50 mg Quetiapine Fumarate (Seroquel) 50 mg PO 2200 [facility] Last Admin: 03/02/17 21:23 Dose: 50 mg Tamsulosin HCl (Flomax) 0.4 mg PO 1830 [facility] PRN Reason: Protocol Last Admin: 03/02/17 18:13 Dose: 0.4 mg Tramadol HCl (Ultram) 100 mg PO TID PRN; Protocol PRN Reason: Pain, moderate (4-7) Last Admin: 02/25/17 00:08 Dose: 100 mg - Labs Labs: 03/02/17 05:00 03/02/17 05:00 - Constitutional Appears: No Acute Distress - Head Exam Head Exam: NORMOCEPHALIC - Eye Exam Eye Exam: Normal appearance Pupil Exam: PERRL - ENT Exam ENT Exam: Mucous Membranes Moist - Neck Exam Neck Exam: Full ROM - Respiratory Exam Respiratory Exam: Chest Wall Tenderness, Decreased Breath Sounds - Cardiovascular Exam Cardiovascular Exam: RRR - GI/Abdominal Exam GI & Abdominal Exam: Normal Bowel Sounds - Rectal Exam Rectal Exam: Deferred - Extremities Exam Extremities Exam: Normal Inspection - Neurological Exam Neurological Exam: CN II-XII Intact, Oriented x3 Additional comments: pt is drowsy . - Skin Skin Exam: Dry, Warm Assessment and Plan - Assessment and Plan (Free Text) Assessment: chest wall pain . Plan: ekg. stat, abg , cardiac iso.
--- NOTE | 2017-03-03 08:56 | RAD ---
HISTORY: chest pain COMPARISON: 10/18/2016 FINDINGS: LUNGS: No active pulmonary disease. PLEURA: No significant pleural effusion identified, no pneumothorax apparent. CARDIOVASCULAR: Normal. OSSEOUS STRUCTURES: No significant abnormalities. VISUALIZED UPPER ABDOMEN: Normal. OTHER FINDINGS: None. IMPRESSION: No active disease.
[2017-03-03] MEDS: POLYETHYLENE GLYCOL 3350 17 GM/Dose PACKET PO SCH (10:46)
[2017-03-03] MEDS: Clobetasol 0.05% Cream(30 gm) TOP SCH ×2 (10:48→17:57)
[2017-03-03] MEDS: buPROPion 300 mg/24 Hours XL Tab PO SCH (10:49)
--- NOTE | 2017-03-03 11:22 | PN ---
DATE: 03/03/2017 SUBJECTIVE: The patient was admitted to TCU after having a TURP last week. Dr. Last was asked t o see this patient for rectal bleeding yesterday. The patient's called me at 7:00 a.m. this mor ja asking if I would take over the patient's care. I have known this patient for many, many years. He has a history of irritable bowel syndrome type issue with profuse diarrhea alternating with cons tipation. He last had a colonoscopy approximately 6 years ago which revealed left-sided diverticulos is, 2 benign polyps as well as a redundant colon and large hemorrhoids. The patient apparently had s ome rectal bleeding this morning. He states that the hemorrhoidal cream that was prescribed seems to make the bleeding worse. He denies any abdominal pain, nausea, vomiting. PHYSICAL EXAMINATION: VITAL SIGNS: Reveal temperature of 97.5, blood pressure 131/72, heart rate is 78. HEENT: Reveals sclerae to be white, conjunctivae are pink. NECK: Supple. CHEST: Reveals lungs to be clear. HEART: Reveals a regular rate and rhythm. ABDOMEN: Soft, nontender. RECTAL: Shows no blood in the rectal vault. He does have an enlarged left internal hemorrhoid. The re is no mass. LABORATORY DATA: Reveal hemoglobin of 13.8 which is stable. Chemistries reveal BUN 26, creatinine 1 .0. IMPRESSION: A 81-year-old male status post transurethral resection of the prostate with rectal bleed ing, most likely secondary to hemorrhoids. There is no blood or mass in the rectal vault. RECOMMENDATIONS: 1. Continue stool softeners. 2. I will switch the patient from hemorrhoidal cream to Anusol HC 25 mg suppository b.i.d. Fuentes Tinajero MD cc: [id number] TT: 03/03/2017 11:21:48 Confirmation # [id number] Dictation # [id number] katerin
--- NOTE | 2017-03-03 12:34 | PN ---
DATE: 03/03/2017 The patient is a 81-year-old white male, well known to me. He has had long history of bipolar disord er, which is currently relatively stable. He had an episode of rectal bleeding. He is currently con valescing from a TURP. MENTAL STATUS: Reveals that he is awake, alert, coherent, lucid, oriented x 3. No suicidal ideation or psychotic symptoms. His affect is somewhat flat. He is mildly depressed. The patient's judgmen t, awareness and insight about his medical problems are satisfactory. CURRENT MEDICATIONS: Includes Anusol-HC, Aricept 5 mg at bedtime, Colace, Flomax, MiraLax, Neurontin 300 mg twice a day and 300 mg at bedtime, quetiapine 50 mg p.o. b.i.d. and at bedtime. There is an order for p.r.n. Ultram. He receives Valium 5 mg b.i.d. and at bedtime, Wellbutrin XL 300 mg q.a.m. LABORATORIES: White count is 5700, hemoglobin of 13.8. His metabolic profile: His electrolytes are all normal, BUN 26, creatinine 1.0, random glucose 135. VITAL SIGNS: Blood pressure 142/82, pulse 88, afebrile, respirations 18 per minute. IMPRESSION: History of bipolar disorder, in mostly remission, status post transurethral resection of prostate, some degree of mild cognitive impairment. PLAN: Continue above psychotropic medicine. We will continue to monitor mental status. Sp Avila MD cc: [phone] TT: 03/03/2017 12:33:44 Confirmation # [id number] Dictation # [id number] en
--- NOTE | 2017-03-03 22:31 | PN ---
DATE: 03/03/2017 SUBJECTIVE: The patient was seen this Thursday morning in the transitional care unit, room 303 with h is son at the bedside. He is sitting out of bed in a chair, awake, alert and in good spirits. He barber d been seen by urologist. His Charles catheter was discontinued. Earlier this morning he had an episo de of initially reported as chest pain, but it was actually left pectoralis and shoulder symptoms. PHYSICAL EXAMINATION: Pectoralis muscle is tender on manipulation up into the axilla with some point tenderness easily reproducible on the chest wall. The patient had an episode of red blood noted after straining with a bowel movement. He was seen by Dr. Tinajero, the geomorphologist who knows him earlier this morning. Overall, he is doing well and s till is scheduled for discharge to home tomorrow. We will continue to follow closely and most likely discharge home tomorrow. Arsalan Coronado MD cc: [id number] TT: 03/03/2017 22:31:29 Confirmation # [id number] Dictation # [id number] an
--- NOTE | 2017-03-04 01:42 | CARD ---
APPROVED REPORT EKG Measurement Heart [id number] <Conclusion> Normal sinus rhythm Nonspecific ST abnormality Abnormal ECG
--- NOTE | 2017-03-04 02:15 | PCM.URO ---
Urology Progress Note - Objective Lab Results Last 24 Hours: Laboratory Results - last 24 hr 03/03/17 03/03/17 06:30 07:35 WBC 5.7 RBC 4.29 Hgb 13.8 L Hct 39.6 L MCV 92.3 MCH 32.2 MCHC 34.8 RDW 13.4 Plt Count 330 MPV 9.6 pCO2 36 pO2 74.0 L HCO3 25.0 ABG pH 7.45 ABG Total CO2 26.1 ABG O2 Saturation 97.9 ABG O2 Content 18.9 ABG Base Excess 1.3 ABG Hemoglobin 14.1 ABG Carboxyhemoglobin 1.9 H POC ABG HHb (Measured) 2.0 ABG Methemoglobin 0.9 ABG O2 Capacity 19.3 Hgb O2 Saturation 95.2 FiO2 21.0 Intake & Output: Intake & Output 03/03/17 03/03/17 03/04/17 06:59 18:59 06:59 Intake Total 620 Output Total 1000 100 600 Balance -1000 -100 20 Intake: Oral 620 Output: Urine 1000 100 600 Urine, Voided 1000 100 600 Other: Voiding Method Urinal Urinal # Bowel Movements 1 Vital Signs: Vital Signs - 24 hr 03/03/17 03/03/17 03/03/17 05:37 10:00 16:00 Temperature 97.5 F L 97.8 F 98.1 F Pulse Rate 78 88 81 Respiratory 18 18 18 Rate Blood Pressure 131/72 142/82 117/73 O2 Sat by Pulse 95 95 96 Oximetry
[2017-03-04] MEDS: POLYETHYLENE GLYCOL 3350 17 GM/Dose PACKET PO SCH (09:48)
[2017-03-04] MEDS: Clobetasol 0.05% Cream(30 gm) TOP SCH ×2 (09:50→17:25)
[2017-03-04] MEDS: buPROPion 300 mg/24 Hours XL Tab PO SCH (09:51)
--- NOTE | 2017-03-04 10:33 | PN ---
DATE: 03/04/2017 SUBJECTIVE: The patient is sitting up in chair. He denies any further rectal bleeding. The patient states that he has urinary frequency and hesitancy. PHYSICAL EXAMINATION:: VITAL SIGNS: Reveal temperature of 98.1, blood pressure 117/73, heart rate of 81. ABDOMEN: Soft, nontender. No new laboratory data are available. IMPRESSION: 1. Rectal bleeding secondary to internal hemorrhoids. 2. Urinary retention secondary to benign prostatic hypertrophy. RECOMMENDATIONS: Continue Anusol-HC 25 mg suppository b.i.d. Fuentes Tinajero MD cc: [id number] TT: 03/04/2017 10:32:38 Confirmation # [id number] Dictation # [id number] tn
--- NOTE | 2017-03-04 13:17 | US ---
PROCEDURE: Ultrasound of the urinary bladder HISTORY: retention COMPARISON: None available. TECHNIQUE: Grayscale imaging was performed. FINDINGS: The urinary bladder is partially distended. The pre void urinary volume is 132 mL. The postvoid urinary volume is 30 ml. IMPRESSION: Small postvoid residual.
--- NOTE | 2017-03-04 14:16 | PN ---
DATE: 03/04/2017 The patient is a 81-year-old male who is status post elective TURP by Dr. Glen Santacruz. The patie nt spent a few days postoperatively on the medical/surgical floor of the [facility] and then was transferred to transitional care for physical therapy on ambulation. The Charles cat heter continued to be bloody for a few days post-surgery. On the medical floor, the Charles catheter c leared. It was eventually discontinued; however, the patient developed suprapubic tenderness and mary n and urinary retention. It was therefore replaced. As the patient was undergoing physical therapy, another attempt at discontinuing the Charles catheter was done. The patient was scheduled to be disch arged to home today; however, once again, when seen, the patient is ambulating in his room with the h elp of a cane. He is complaining of suprapubic tenderness. It feels like urgency. He was given sev eral cups of water to drink and an ultrasound of the bladder was ordered by Dr. Santacruz earlier. PHYSICAL EXAMINATION: GENERAL: The patient is otherwise unchanged. VITAL SIGNS: Stable. LABORATORY DATA: Blood work that was drawn yesterday and the day before were acceptable. While visiting the patient, the stretcher arrived to take him down for ultrasound. We will follow up with the results and case to be discussed with Dr. Santacruz. From a medical point of view, the matthewe nt is stable. FINAL DIAGNOSES: 1. Hematuria. 2. Gait disturbance. 3. Suprapubic tenderness. 4. Bright red blood per rectum secondary to hemorrhoids. 5. History of depression and anxiety 6. History of bipolar disorder. Jonh Coronado MD cc: [id number] TT: 03/04/2017 12:33:38 Confirmation # [id number] Dictation # [id number] tn
--- NOTE | 2017-03-04 14:45 | PN ---
DATE: 03/04/2017 The patient is a 81-year-old male currently being treated on the transitional care unit following a t ransurethral prostatectomy. He also has bleeding hemorrhoids. He has urinary retention. The patien t has been seen in addition to his urologist followed by a category consultant. The patient as a hist ory of benign prostatic hypertrophy. The patient had a difficult night last night due to painful uri nation. CURRENT MEDICATIONS: Include Anusol HC, Aricept 5 mg at bedtime, Flomax, MiraLax, Neurontin 300 mg b .i.d. and 300 mg at bedtime, quetiapine 50 mg b.i.d. and 50 mg at bedtime. He is on clobetasol, p.r. n. Ultram, Valium 5 mg twice a day and at bedtime. LABORATORY DATA: The patient has no new laboratory data to report. VITAL SIGNS: His blood pressure is 128/78, pulse 74, he is afebrile, respirations 20 per minute. MENTAL STATUS: He is awake, alert, coherent, lucid, understands the nature of his medical problems, in extreme discomfort, mildly to moderately appropriate depressed regarding his medical condition. N o suicidal ideation or psychotic symptom. Oriented x 3. The patient is coherent and able to have a rational conversation. IMPRESSION: History of bipolar disorder. Status post transurethral resection of the prostate. The patient has bleeding hemorrhoids. PLAN: Will continue to monitor his mental status and remain on above psychotropic medicine. Sp Avila MD cc: [id number] TT: 03/04/2017 14:44:14 Confirmation # [id number] Dictation # [id number] mn
[2017-03-04] MEDS: Vancomycin 25 MG/ML PO SCH ×2 (17:28→22:14)
[2017-03-05 06:35] VITALS: PULSE 73; RESP 18; O2SAT 92
[2017-03-05] MEDS: POLYETHYLENE GLYCOL 3350 17 GM/Dose PACKET PO SCH (09:20)
[2017-03-05] MEDS: Clobetasol 0.05% Cream(30 gm) TOP SCH (09:22)
[2017-03-05] MEDS: buPROPion 300 mg/24 Hours XL Tab PO SCH (09:22)
--- NOTE | 2017-03-05 09:31 | PN ---
DATE: 03/05/2017 SUBJECTIVE: The patient is sitting in chair, comfortable. He denies any further rectal bleeding. H e denies diarrhea. He is tolerating solid food. He had less urinary hesitancy and frequency last ni ght. He was able to sleep better. PHYSICAL EXAMINATION: VITAL SIGNS: Reveal temperature of 98.6, blood pressure 125/63, heart rate 73. HEENT: Reveals sclerae to be white, conjunctivae pink. NECK: Supple. CHEST: Reveals lungs to be clear. HEART: Reveals regular rate and rhythm. ABDOMEN: Soft, nontender. EXTREMITIES: Show no edema. LABORATORY DATA: Reveal no new data available. His C. diff antigen did come back positive yesterday . He was started on vancomycin 500 mg q.i.d. IMPRESSION: A 81-year-old male with urinary retention from prostatic enlargement with rectal bleedin g secondary to hemorrhoids as well as pseudomembranous colitis. RECOMMENDATIONS: 1. Would continue vancomycin 500 mg 4 times a day for 14 days. 2. Continue Anusol-HC 25 mg suppository b.i.d. Fuentes Tinajero MD cc: [id number] TT: 03/05/2017 09:31:25 Confirmation # [id number] Dictation # [id number] tn
[2017-03-05] MEDS: Vancomycin 25 MG/ML PO SCH ×2 (09:58→13:04)
[2017-03-05 10:38] VITALS: BP 129/77; TEMP 98.7
--- NOTE | 2017-03-05 20:46 | PN ---
DATE: 03/05/2017 The patient is a 81-year-old white male. I have visited with patient this morning, he is currently b eing treated on the transitional care unit for gait dysfunction, debilitation following a TURP, an ep isode of rectal bleeding. The patient has history of bipolar disorder. Today, patient was alert, co herent, lucid, feeling better, no longer bleeding, urinating somewhat better. The patient's mental s tatus reveals that he is oriented x 3, able to carry on a rational conversation. Judgment and insigh t are satisfactory, but appeared mildly depressed. The patient now had no suicidal ideation or psych otic symptomatology. The patient currently plans to be discharged later today. PSYCHOTROPIC MEDICATIONS: Include gabapentin 300 mg b.i.d. and at bedtime, Seroquel 50 mg b.i.d. and at bedtime, Valium 5 mg b.i.d. and at bedtime. He is also treated with Aricept 5 mg at bedtime, Col tatum, Flomax, MiraLax. He also receives Wellbutrin-XL 300 mg q.a.m. for depression. The patient's vital signs are stable. Blood pressure 129/77, pulse 73, respirations 18 per minute an d afebrile. The patient had no adverse effect from psychotropic medicine. Discussed with patient, t he need for outpatient psychiatric treatment. He agrees to such. He will follow up in my office on a schedule appointment. IMPRESSION: Bipolar disorder, in partial remission. The patient is status post transurethral resect ion of prostate, status post bleeding hemorrhoids and mild cognitive impairment. PLAN: As above. Sp Avila MD cc: [id number] TT: 03/05/2017 20:46:07 Confirmation # [id number] Dictation # [id number] lissy
--- NOTE | 2017-03-07 19:40 | PN ---
DATE: 03/05/2017 When I last saw the patient on Thursday he was planned for discharge home from TCU on the next day, Thursday. Apparently, yesterday was a difficult day. He had pain and difficulty with urination and postvoid residual ultrasound was done , which was essentially unremarkable, but the patient stayed 1 more day. Today , he is feeling much better, ready for discharge to home. Awake, alert, clear, and in good spirits, denying any urinary symptoms. Charles catheter is out as it has been through this whole stay. He says he is voiding well, looking forward to going home and continuing with physical therapy that he has learned here at the [facility]. He has instructions sheets to continue the exercise and from a medical perspective is ready for discharge when ordered by Dr. Santacruz. Arsalan Coronado MD cc: [id number] TT: 03/07/2017 19:39:58 Confirmation # [id number] Dictation # [id number] jaspal BAIRD
--- NOTE | 2017-05-05 09:26 | DS ---
See the hospital course for further details. A very pleasant gentleman who was admitted to the hospital with urinary retention, gross hematuria, and catheter difficulty. After having explained to the patient various options and various treatment options, the patient was brought in to the hospital and monitored throughout the hospital course. See history and physical for further details. At this point, the patient is being discharged to home in stable condition with routine followup explained to the patient in great detail. FINAL DIAGNOSES: Urinary retention, gross hematuria, and catheter trouble. The patient is discharged to home in stable condition. Glen Santacruz MD
== END 2017-03-05 15:15 | disposition home or self-care (01) | DRG 92 ==
LOC: TRCU 18:43
PROVIDERS: ADMIT Urology; ATTEND Urology
PROC: F07Z9FZ Gait Training/Functional Ambulation Treatment using Assistive, Adaptive, Supportive or Protective Equipment (ICD-10-PCS; principal; 2017-02-25)
PROC: F08Z4FZ Home Management Treatment using Assistive, Adaptive, Supportive or Protective Equipment (ICD-10-PCS; 2017-02-25)
DX: R26.9 Unspecified abnormalities of gait and mobility (principal); R53.81 Other malaise; A04.7 Enterocolitis due to Clostridium difficile; M06.9 Rheumatoid arthritis, unspecified; F31.70 Bipolar disorder, currently in remission, most recent episode unspecified; G25.0 Essential tremor; N40.1 Benign prostatic hyperplasia with lower urinary tract symptoms; R33.8 Other retention of urine; F41.1 Generalized anxiety disorder; G44.229 Chronic tension-type headache, not intractable; K58.0 Irritable bowel syndrome with diarrhea; R30.9 Painful micturition, unspecified; K59.00 Constipation, unspecified; K64.8 Other hemorrhoids; G31.84 Mild cognitive impairment of uncertain or unknown etiology; R35.0 Frequency of micturition; R39.11 Hesitancy of micturition; Z90.79 Acquired absence of other genital organ(s); Z87.891 Personal history of nicotine dependence

== ENCOUNTER 2017-09-04 19:13 | Emergency (ER) | payer MEDICARE ==
[2017-09-04 19:29] VITALS: BMI 24.4
[2017-09-04 19:32] VITALS: TEMP 98; O2SAT 95
[2017-09-04] MEDS ORDERED: Morphine 4 mg/ml ISec IM STA (19:55)
--- NOTE | 2017-09-04 22:47 | RAD ---
EXAM: XR Right Ribs and AP Chest, 3 or More Views CLINICAL HISTORY: 81 years old, male; Injury or trauma; Fall; Initial encounter; Rib area; Blunt trauma (contusions or hematomas) TECHNIQUE: Frontal and oblique views of the right ribs and frontal view of the chest. COMPARISON: DX - CHEST PORTABLE 2017-03-03 07:55 FINDINGS: Lungs: Moderate right-sided pleural effusion likely hemorrhage from adjacent rib fracture, with adjacent compressive atelectasis. No consolidation. A small left-sided pleural effusion is also present, with adjacent compressive atelectasis. Pleural space: No pneumothorax. Heart: Unremarkable. No cardiomegaly. Mediastinum: Unremarkable. Bones/joints: Acute minimally displaced fracture of the right ninth rib, along the posterior lateral margin. No additional fractures are identified. IMPRESSION: Acute fracture of the right ninth rib, as detailed above. Bilateral pleural effusions (right greater than left) with adjacent compressive atelectasis.
[2017-09-04 22:59] VITALS: RESP 14
--- NOTE | 2017-09-04 23:30 | ED PDOC ---
Arrival/HPI - General Historian: Patient - History of Present Illness Time/Duration: Prior to Arrival Symptom Onset: Sudden Symptom Course: Unchanged Activities at Onset: Light Context: Home <Antoinette Contreras PA-C - Last Filed: 09/05/17 03:13> <Jaspal Brewster - Last Filed: 09/05/17 04:27> - General Chief Complaint: Trauma Time Seen by Provider: 09/04/17 19:43 - History of Present Illness Narrative History of Present Illness (Text): 09/04/17 19: 48 61 year old male, with no significant past medical history, presents to the Emergency department s/p fall from ladder. Patient presents complaining of right rib pain that worsens with movement and taking deep breaths. Patient denies loss of consciousness, headache, dizziness, cough, abdominal pain, nausea, vomiting, diarrhea, back pain, neck pain, or any other complaint. Of note, patient states that when he was on the ladder, he felt that something went into his right eye and now complains of additional discomfort to the right high, reports no decrease in vision, or contact lens use. PMD: Dr. 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) - Renal Hx Renal Disorder: No - Endocrine/Metabolic Hx Endocrine Disorders: No - Hematological/Oncological Hx Blood Disorders: No - Integumentary Hx Dermatological Disorder: No - Musculoskeletal/Rheumatological Hx Rheumatoid Arthritis: Yes - Gastrointestinal Hx Gastrointestinal Disorders: Yes Other/Comment: COLONOSCOPY WITH POLYPS REMOVED - Genitourinary/Gynecological Hx Reproductive Disorders: No - Psychiatric Hx Emotional Abuse: No Hx Physical Abuse: No Hx Substance Use: No - Past Surgical History Past Surgical History: No Previous - Anesthesia Hx Anesthesia: Yes Hx Anesthesia Reactions: No Hx Malignant Hyperthermia: No - Suicidal Assessment Feels Threatened In Home Enviroment: No <Antoinette Contreras PA-C - Last Filed: 09/05/17 03:13> Family/Social History - Physician Review Nursing Documentation Reviewed: Yes Family/Social History: No Known Family HX Smoking Status: Former Smoker Hx Alcohol Use: No Hx Substance Use: No Hx Substance Use Treatment: No <Antoinette Contreras PA-C - Last Filed: 09/05/17 03:13> Allergies/Home Meds <Antoinette Contreras PA-C - Last Filed: 09/05/17 03:13> <Jaspal Brewster - Last Filed: 09/05/17 04:27> Allergies/Adverse Reactions: Allergies aspirin Allergy (Verified 02/25/17 03:26) NAUSEA codeine Allergy (Verified 02/25/17 03:26) DIZZINESS Penicillins Allergy (Verified 02/25/17 03:26) ANAPHYLAXIS Home Medications: Home Meds Medication Instructions Recorded Confirmed buPROPion XL [Wellbutrin XL] 300 mg PO QAM 08/15/14 09/04/17 Gabapentin [Neurontin] 300 mg PO TID 08/30/16 09/04/17 Review of Systems - Physician Review All systems were reviewed & negative as marked: Yes - Review of Systems Constitutional: absent: Fevers Respiratory: absent: Cough Gastrointestinal: absent: Abdominal Pain, Diarrhea, Nausea, Vomiting Musculoskeletal: Other (Right rib pain. ). absent: Back Pain, Neck Pain Neurological: Other (loss of consciousness). absent: Headache, Dizziness <Antoinette Contreras PA-C - Last Filed: 09/05/17 03:13> Physical Exam Temperature: Afebrile Blood Pressure: Normal Pulse: Regular Respiratory Rate: Normal Appearance: Positive for: Well-Appearing, Non-Toxic, Comfortable Pain Distress: Moderate Mental Status: Positive for: Alert and Oriented X 3 - Systems Exam Head: Present: Atraumatic, Normocephalic Pupils: Present: PERRL Extroacular Muscles: Present: EOMI Conjunctiva: Present: Injected (Mildly injected right conjunctiva), Other ( Corneal abrasion noted at 9:00 of the right eye.) Mouth: Present: Moist Mucous Membranes Neck: Present: Normal Range of Motion. No: MIDLINE TENDERNESS, Paraspinal Tenderness Respiratory/Chest: Present: Clear to Auscultation, Good Air Exchange. No: Respiratory Distress, Accessory Muscle Use Cardiovascular: Present: Regular Rate and Rhythm, Normal S1, S2. No: Murmurs Abdomen: Present: Normal Bowel Sounds. No: Tenderness, Distention, Peritoneal Signs Back: Present: Normal Inspection. No: CVA Tenderness, Midline Tenderness Upper Extremity: Present: Tenderness (Moderate tenderness to the right lateral bassem). No: Cyanosis, Edema Lower Extremity: Present: Normal Inspection. No: Edema Neurological: Present: GCS=15, CN II-XII Intact, Speech Normal Skin: Present: Warm, Dry, Normal Color. No: Rashes Psychiatric: Present: Alert, Oriented x 3, Normal Insight, Normal Concentration <Antoinetet Contreras PA-C - Last Filed: 09/05/17 03:13> Vital Signs Temp Pulse Resp BP Pulse Ox 09/04/17 22:59 72 14 136/84 95 09/04/17 21:25 70 14 141/89 95 09/04/17 19:31 98.0 F 79 20 151/80 H 95 Medical Decision Making - Lab Interpretations I have reviewed the lab results: Yes <Antoinette Contreras PA-C - Last Filed: 09/05/17 03:13> <Jaspal Brewster - Last Filed: 09/05/17 04:27> ED Course and Treatment: 09/04/17 19:47 Impression: 81 year old male present s/p fall from ladder. Presents complaining of right rib pain. Plan: -- Labs -- CT Chest, Abd and Pelvis -- Morphine -- Zofran -- Ribs right and PA Chest x-ray -- Reassess and disposition Progress Notes: XR R ribs : +fracture of the 9th rib, no penumothorax, as read by PA. Considering the intensity of the patient's pain noted on exam, XRs sent to [facility] for radiology reading. XR R ribs by vrad indicate same 9th rib fracture visualized with no other fractures, but +b/l pleural effusions, which is new compared to prior CXR done in Oct of this yr. Considering the history and exam labs and CT chest/abdomen/ pelvis with IV contrast ordered. X-ray results discussed with the patient in great detail. Patient is notified of further plan to obtain labs and further imaging of his chest and abdomen and pelvis considering findings found on x-ray of the right ribs. Patient agrees to current treatment plan. On reevaluation, patient reports improvement of pain, states that the pain is controlled at this time however he continues to have pain any time with movement. Reports no shortness of breath, no chest pain or abdominal pain at this time. On exam lungs are clear to auscultation, cardiac regular rate and rhythm, abdomen remains soft with no tenderness. IV access obtained, labs drawn and sent to lab. Labs reviewed, patient sent to CT. Patient returned from CT without any incident, he is laying in bed comfortably with no additional complaints at this time, CT results still pending. (Ben IBARRA,Antoinette Fuentes) CT a/p is negative for acute injury, noted atelecatasis. 09/05/17 04:21 (Jaspal Brewster) - Lab Interpretations Lab Results: 09/05/17 00:15 09/05/17 01:45 Lab Results 09/05/17 01:45: Sodium 142, Potassium 4.5, Chloride 105, Carbon Dioxide 29, Anion Gap 12, BUN 23 H, Creatinine 1.0, Est GFR ( Amer) > 60, Est GFR ( Non-Af Amer) > 60, Random Glucose 112 H, Calcium 9.6, Total Bilirubin 0.6, AST 26, ALT 38, Alkaline Phosphatase 93, Total Protein 7.7, Albumin 4.1, Globulin 3.6, Albumin/Globulin Ratio 1.2 09/05/17 00:15: PT 12.2, INR 1.12 H, APTT 35.3 09/05/17 00:15: WBC 6.7, RBC 4.43, Hgb 14.2, Hct 42.2, MCV 95.3, MCH 32.1, MCHC 33.6, RDW 13.7, Plt Count 209, MPV 10.6, Gran % 60.8, Lymph % (Auto) 27.8, [place] % (Auto) 9.3 H, Eos % (Auto) 1.8, Baso % (Auto) 0.3, Gran # 4.07, Lymph # 1.9, [place] # 0.6, Eos # 0.1, Baso # 0.02 - RAD Interpretation Narrative RAD Interpretations (Text): 09/05/17 03:20 XR R ribs : IMPRESSION: Acute fracture of the right ninth rib, as detailed above. Bilateral pleural effusions (right greater than left) with adjacent compressive atelectasis. Dictated and Authenticated by: Kiki Cary MD 09/04/2017 10:47 PM Eastern Time ([place] & [place]) (Antoinette Contreras PA-C) Radiology Orders: 09/04/17 19:55 RIBS RIGHT & PA CHEST [RAD] Stat 09/04/17 23:15 ABD & PELVIS IV CONTRAST ONLY [CT] Stat - Medication Orders Current Medication Orders: Discontinued Medications Morphine Sulfate (Morphine) 6 mg IM STAT STA Stop: 09/04/17 20:00 Last Admin: 09/04/17 20:10 Dose: 6 mg MAR Pain Assessment Document 09/04/17 20:10 OCS (Rec: 09/04/17 20:11 OCS [facility] [id number][place] Pain Reassessment Is this a pain reassessment? Yes Sleep Is patient sleeping during reassessment? No Presence of Pain Presence of Pain Yes Pain Scale Used Pain Scale Used Numeric Location Left, Right or Bilateral Bilateral Pain Location Body Site Back Description Description Constant Pain Behavior Moaning Guarding Irritability Aggravating Factors ADL's IM Administration Charges Document 09/04/17 20:10 OCS (Rec: 09/04/17 20:11 OCS [facility] [id number]) Injection Site MAR Injection Site Right Deltoid Charges for Administration # of IM Administrations 1 Ondansetron HCl (Zofran Odt) 4 mg PO STAT STA Stop: 09/04/17 19:56 Last Admin: 09/04/17 20:11 Dose: 4 mg Tobramycin Sulfate (Tobrex 0.3% Ophth Soln) 2 drop OD STAT STA Stop: 09/05/17 03:19 Last Admin: 09/05/17 03:46 Dose: 2 drop - PA / COMIC ARTIST / Resident Statement MD/DO has reviewed & agrees with the documentation as recorded. - Scribe Statement The provider has reviewed the documentation as recorded by the Scribe <Antoinette Contreras PA-C - Last Filed: 09/05/17 03:13> <Jaspal Brewster - Last Filed: 09/05/17 04:27> - Scribe Statement Danie Mason Provider Scribe Attestation: All medical record entries made by the Scribe were at my direction and personally dictated by me. I have reviewed the chart and agree that the record accurately reflects my personal performance of the history, physical exam, medical decision making, and the department course for this patient. I have also personally directed, reviewed, and agree with the discharge instructions and disposition. (Antoinette Contreras PA-C) Disposition/Present on Arrival - Present on Arrival Any Indicators Present on Arrival: No History of DVT/PE: No History of Uncontrolled Diabetes: No Urinary Catheter: No History of Decub. Ulcer: No History Surgical Site Infection Following: None - Disposition Have Diagnosis and Disposition been Completed?: Yes Patient Plan: Discharge <Antoinette Contreras PA-C - Last Filed: 09/05/17 03:13> - Present on Arrival Any Indicators Present on Arrival: No History of DVT/PE: No History of Uncontrolled Diabetes: No Urinary Catheter: No History of Decub. Ulcer: No History Surgical Site Infection Following: None - Disposition Have Diagnosis and Disposition been Completed?: Yes Disposition Time: 04:24 Patient Plan: Discharge <Jaspal Brewster - Last Filed: 09/05/17 04:27> - Disposition Diagnosis: Contusion, chest wall, Atelectasis of both lungs Disposition: HOME/ ROUTINE Patient Problems: Current Active Problems Problem Status Onset Atelectasis of both lungs Acute Contusion, chest wall Acute Condition: STABLE Discharge Instructions (ExitCare): Thoracic Pain (ED), Atelectasis (ED) Print Language: NEPALI Additional Instructions: take tylenol over the counter for pain, followup with your doctor about the results of your CT scan. Referrals: Jonh Coronado MD [Primary Care Provider] - Follow up with primary Forms: [employer] (Lithuanian)
[2017-09-05 00:42] LABS: BASO # 0.02 K/mm3 (0.0-2.0); BASO % 0.3 % (0.0-3.0); EOS # 0.1 (0.0-0.7); EOS % 1.8 % (1.5-5.0); GRAN # 4.07 (1.4-6.5); GRAN % 60.8 % (50.0-68.0); HEMATOCRIT 42.2 % (42.0-52.0); LYMPH # 1.9 (1.2-3.4); LYMPH % 27.8 % (22.0-35.0); MEAN CELL VOLUME 95.3 fl (80.0-105.0); MEAN CORPUSCULAR HEMOGLOBIN 32.1 pg (25.0-35.0); MEAN CORPUSCULAR HGB CONC 33.6 g/dl (31.0-37.0); MEAN PLATELET VOLUME 10.6 fl (7.0-11.0); MONO # 0.6 (0.1-0.6); MONO % 9.3 % (1.0-6.0); RED CELL DISTRIBUTION WIDTH 13.7 % (11.5-14.5); WHITE BLOOD COUNT 6.7 10^3/ul (4.5-11.0)
[2017-09-05 00:55] LABS: INR 1.12 (0.93-1.08); PARTIAL THROMBOPLASTIN TIME 35.3 Seconds (25.1-36.5)
[2017-09-05 02:13] LABS: ALB/GLOB RATIO 1.2 (1.1-1.8); ALKALINE PHOSPHATASE 93 U/L (38-126); ALT/SGPT 38 U/L (7-56); AST/SGOT 26 U/L (17-59); BILIRUBIN,TOTAL 0.6 mg/dL (0.2-1.3); BLOOD UREA NITROGEN 23 mg/dL (7-21); CALCIUM 9.6 mg/dL (8.4-10.5); CARBON DIOXIDE 29 mmol/L (21-33); CHLORIDE 105 mmol/L (98-107); GFR AFRICAN-AMERICAN > 60; GLUCOSE,RANDOM 112 mg/dL (70-110); POTASSIUM 4.5 mmol/L (3.6-5.0); SODIUM 142 mmol/L (132-148); TOTAL PROTEIN 7.7 g/dL (5.8-8.3)
[2017-09-05] MEDS ORDERED: Iohexol 350 MG/100 ML VIAL ONE (02:23)
[2017-09-05] MEDS ORDERED: Tobramycin 0.3% OPHT SOLN OD STA (03:18)
--- NOTE | 2017-09-05 04:03 | CT ---
EXAM: CT Abdomen and Pelvis With Intravenous Contrast CLINICAL HISTORY: 81 years old, male; Pain; Abdominal pain; Additional info: Trauma, rib pain TECHNIQUE: Axial computed tomography images of the abdomen and pelvis with intravenous contrast. All CT scans at this facility use one or more dose reduction techniques, viz.: automated exposure control; ma/kV adjustment per patient size (including targeted exams where dose is matched to indication; i.e. head); or iterative reconstruction technique. MIP reconstructed images were created and reviewed. Coronal and sagittal reformatted images were created and reviewed. CONTRAST: 100 mL of [id number] administered intravenously. COMPARISON: CT - ABDOMEN,PELVIS W/WO CONTRAST 2017-02-11 09:45 FINDINGS: Lower thorax: Bibasilar atelectasis. ABDOMEN: Liver: No acute findings. Gallbladder and bile ducts: The gallbladder is decompressed. No calcified stones. No significant intra- or extrahepatic biliary ductal dilation. Pancreas: Enhances homogeneously. No ductal dilation. No discrete mass. Spleen: No acute findings. Adrenals: No acute findings. Kidneys and ureters: No acute findings. No hydronephrosis or renal calculi. No discrete solid mass. PELVIS: Bladder: No acute findings. Reproductive: No acute findings. Appendix: The air filled appendix is of normal caliber (series 2, image 128). ABDOMEN and PELVIS: Stomach and bowel: No obstruction. No mucosal thickening. Colonic diverticulosis, without inflammation. Peritoneum: No significant fluid collection. No free air. Lymph nodes: No pathologically enlarged lymph nodes. Vasculature: Calcified atherosclerotic disease. Bones: No acute fracture. IMPRESSION: No acute intra-abdominal findings, as detailed above.
[2017-09-05 04:45] VITALS: BP 132/80; PULSE 68
== END 2017-09-05 04:47 | disposition home or self-care (01) ==
LOC: ED 19:13
DX: S20.211A Contusion of right front wall of thorax, initial encounter (principal); W11.XXXA Fall on and from ladder, initial encounter; Y92.89 Other specified places as the place of occurrence of the external cause; J98.11 Atelectasis; Z87.891 Personal history of nicotine dependence
CPT/HCPCS: 71101; 74177; 80053; 85025; 85610; 85730; 96372; 99285; J2270; Q9967

== ENCOUNTER 2018-08-26 12:00 | Emergency (ER) | payer MEDICARE ==
[2018-08-26 12:01] VITALS: BMI 24.7
[2018-08-26 12:38] VITALS: RESP 17; TEMP 97.5
--- NOTE | 2018-08-26 12:50 | ED PDOC ---
Arrival/HPI - General Chief Complaint: Finger,Hand,&Wrist Time Seen by Provider: 08/26/18 12:05 Historian: Patient, Family (daughter) - History of Present Illness Narrative History of Present Illness (Text): 08/26/18 12:44 82 year old male, whose past medical history presents includes rheumatoid arthritis, presents to the emergency department accompanied by daughter, for evaluation, status post mechanical fall last night. Patient states he fell on his left hand and is having pain to his left thumb and hand. Patient denies any numbness or weakness in the limb. Patient informs icing the hand, but has not taken any medication for pain relief. Patient denies any head injury, loss of consciousness, or any other injury. Patient also denies any headache, dizziness, lightheadness, chest pain, back pain, neck pain, or any other complaint. 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) - Renal Hx Renal Disorder: No - Endocrine/Metabolic Hx Endocrine Disorders: No - Hematological/Oncological Hx Blood Disorders: No - Integumentary Hx Dermatological Disorder: No - Musculoskeletal/Rheumatological Hx Rheumatoid Arthritis: Yes - Gastrointestinal Hx Gastrointestinal Disorders: Yes Other/Comment: COLONOSCOPY WITH POLYPS REMOVED - Genitourinary/Gynecological Hx Reproductive Disorders: No - Psychiatric Hx Emotional Abuse: No Hx Physical Abuse: No Hx Substance Use: No - Past Surgical History Past Surgical History: No Previous - Anesthesia Hx Anesthesia: Yes Hx Anesthesia Reactions: No Hx Malignant Hyperthermia: No - Suicidal Assessment Feels Threatened In Home Enviroment: No Family/Social History - Physician Review Nursing Documentation Reviewed: Yes Family/Social History: No Known Family HX Smoking Status: Former Smoker Hx Alcohol Use: No Hx Substance Use: No Hx Substance Use Treatment: No Allergies/Home Meds Allergies/Adverse Reactions: Allergies aspirin Allergy (Verified 02/25/17 03:26) NAUSEA codeine Allergy (Verified 02/25/17 03:26) DIZZINESS Penicillins Allergy (Verified 02/25/17 03:26) ANAPHYLAXIS Home Medications: Home Meds Medication Instructions Recorded Confirmed buPROPion XL [Wellbutrin XL] 300 mg PO QAM 08/15/14 09/04/17 Gabapentin [Neurontin] 300 mg PO TID 08/30/16 09/04/17 Review of Systems - Physician Review All systems were reviewed & negative as marked: Yes - Review of Systems Musculoskeletal: absent: Back Pain, Neck Pain Neurological: absent: Headache, Dizziness, Focal Weakness, Other (No head injury, LOC, numbness, or any other injury) Physical Exam Vital Signs Reviewed: Yes Vital Signs Temp Pulse Resp BP Pulse Ox 08/26/18 12:37 97.5 F L 68 17 146/88 94 L Temperature: Afebrile Blood Pressure: Normal Pulse: Bradycardic Respiratory Rate: Normal Appearance: Positive for: Well-Appearing, Non-Toxic, Comfortable Pain Distress: None Mental Status: Positive for: Alert and Oriented X 3 - Systems Exam Head: Present: Atraumatic, Normocephalic Pupils: Present: PERRL Extroacular Muscles: Present: EOMI Mouth: Present: Moist Mucous Membranes Neck: Present: Normal Range of Motion. No: MIDLINE TENDERNESS Back: Present: Normal Inspection. No: CVA Tenderness, Midline Tenderness, Paraspinal Tenderness Upper Extremity: Present: Normal ROM, NORMAL PULSES, Tenderness (Proximal thumb). No: Other (No snuff box tenderness) Lower Extremity: Present: Normal Inspection, NORMAL PULSES. No: Edema Neurological: Present: GCS=15, CN II-XII Intact, Speech Normal Psychiatric: Present: Alert, Oriented x 3, Normal Insight, Normal Concentration Medical Decision Making ED Course and Treatment: 08/26/18 12:56 Impression: 82 year old male presents with pain in left hand secondary to mechanical fall. Differential Diagnosis included but are not limited to: X-rays to rule out fracture Plan: -- X-ray left hand -- Ibuprofen -- Reassess and disposition Prior Visits: Notes and results from previous visits were reviewed. Progress Notes: 08/26/18 13:21 Patient placed in a thumb spica splint by Griselda DANIELS. Neurovascularly intact after splint. Case discussed with Dr. Ray, Orthopedics, who agrees with thumb spica spint and he advises the patient to follow up in his office in 2-3 days. - RAD Interpretation Radiology Orders: 08/26/18 12:35 HAND LEFT 3 VIEWS ROUTINE [RAD] Stat - Medication Orders Current Medication Orders: Discontinued Medications Ibuprofen (Motrin Tab) 600 mg PO STAT STA Stop: 08/26/18 12:36 Last Admin: 08/26/18 12:39 Dose: 600 mg - Scribe Statement The provider has reviewed the documentation as recorded by the Jaciel Giordano Provider Scribe Attestation: All medical record entries made by the Usmanibbelkis were at my direction and persona maryamy dictated by me. I have reviewed the chart and agree that the record accurately reflects my personal performance of the history, physical exam, medical decision making, and the department course for this patient. I have also personally directed, reviewed, and agree with the discharge instructions and disposition. Disposition/Present on Arrival - Present on Arrival Any Indicators Present on Arrival: No History of DVT/PE: No History of Uncontrolled Diabetes: No Urinary Catheter: No History of Decub. Ulcer: No History Surgical Site Infection Following: None - Disposition Have Diagnosis and Disposition been Completed?: Yes Diagnosis: Finger fracture, left Disposition: HOME/ ROUTINE Disposition Time: 13:20 Patient Problems: Current Active Problems Problem Status Onset Finger fracture, left Acute Condition: IMPROVED Discharge Instructions (ExitCare): Finger Fracture (DC) Additional Instructions: VISHNU FUNG, thank you for letting us take care of you today. Your provider was Earnest Decker DO and you were treated for Finger Fracture (thumb). The emergency medical care you received today was directed at your acute symptoms. If you were prescribed any medication, please fill it and take as directed. It may take several days for your symptoms to resolve. Return to the Emergency Department if your symptoms worsen, do not improve, or if you have any other problems. Make an appointment to follow up with Orthopedics in 2-3days please. Keep splint on until follow up. Please contact your doctor or call one of the physicians/clinics you have been referred to that are listed on the Patient Visit Information form that is included in your discharge packet. Bring any paperwork you were given at discharge with you along with any medications you are taking to your follow up visit. Our treatment cannot replace ongoing medical care by a primary care provider outside of the emergency department. Thank you for allowing the [facility] team to be part of your care today. If you had an X-Ray or CT scan: A Radiologist will review the ED reading if any change in treatment is needed we will contact you. If you had a blood, urine, or wound culture: It will take several days for the results, if any change in treatment is needed we will contact you. If you had an STI test: It will take 48 hours for the results. Please call after 1 week if you have not heard back. Prescriptions: Ibuprofen [Motrin] 600 mg PO Q6 PRN #30 tab PRN Reason: Pain, Moderate (4-7) Referrals: Jonh Coronado MD [Family Provider] - Follow up with primary Niles Ray MD [Staff Provider] - Follow up with primary Forms: [employer] (Bulgarian)
--- NOTE | 2018-08-26 13:06 | RAD ---
PROCEDURE: Left Hand Radiographs. HISTORY: left thumb/hand pain s/p fall r/o fx COMPARISON: None. FINDINGS: BONES: There is a minimally displaced transverse fracture through the base of the 1st proximal phalanx. JOINTS: There is extensive osteoarthritis with narrowing of the DIP and PIP joints. Severe deformities are seen in the thumb. SOFT TISSUES: Normal. OTHER FINDINGS: None. IMPRESSION: Severe osteoarthritis. Minimally displaced transverse fracture through the base of the 1st proximal phalanx
[2018-08-26 13:27] VITALS: BP 150/63; PULSE 66; O2SAT 95
== END 2018-08-26 13:25 | disposition home or self-care (01) ==
LOC: ED 12:00
DX: S62.512A Displaced fracture of proximal phalanx of left thumb, initial encounter for closed fracture (principal); W19.XXXA Unspecified fall, initial encounter; Y92.9 Unspecified place or not applicable